=== PATIENT | female | born 1960 | race Caucasian/White ===

== ENCOUNTER 2023-08-09 14:08 | Emergency (ER) | payer OTHER, SELFPAY ==
[2023-08-09] VITALS (13 sets, daily range): BP systolic 167–192; BP diastolic 98–104; PULSE 71–97; RESP 17; TEMP 37; O2SAT 85–97; BMI 29.2
--- NOTE | 2023-08-09 14:36 | CRLHL7_ITS ---
For Patients: As a result of the Century Cures Act, medical imaging exams and procedure reports are released immediately into your electronic medical record. You may view this report before your referring provider. If you have questions, please contact your health care provider. INDICATION: Left-sided pain. TECHNIQUE: Noncontrast CT images acquired through the lumbar spine. COMPARISON: None. FINDINGS: Transitional lumbosacral anatomy. For purposes of this exam, the transitional segment is designated S1 and demonstrates lumbarization. Rudimentary S1-2 disc space. The lumbar lordosis is preserved. Palq-xe-vhuwqtma rightward lumbar curvature. Vertebral heights maintained. No acute fracture or spondylolisthesis. T12-L1 through L2-3: No spinal canal or neural foraminal narrowing. L3-4: Moderate disc height loss. Circumferential disc bulge. Mild facet arthropathy. Thickening ligamentum flavum. Jzgz-tp-mattqycf spinal canal narrowing. Mild left without right neural foraminal narrowing. L4-5: Moderately advanced disc height loss. Posterior disc bulge. Vwdk-lz-slfzkvvw facet arthropathy. Thickening ligamentum flavum. Tkhw-hk-qcsvmwif spinal canal narrowing. No neural foraminal narrowing. L5-S1: Advanced disc height loss. Posterior disc bulge with superimposed left central disc extrusion demonstrating cephalad predominant migration. Advanced right and moderate left facet arthropathy. Severe spinal canal and left greater than right lateral recess stenosis. Hats-ou-uwfxolrw left and mild right neural foraminal narrowing. S1-2: Transitional level. Endplate spondylitic ridging. No spinal canal narrowing. Low-grade neural foraminal narrowing. IMPRESSION: 1. Transitional lumbosacral anatomy. For purposes of this exam, the transitional segment is designated S1 and demonstrates lumbarization. Rudimentary S1-2 disc space. 2. At L5-S1, superiorly migrated left central disc extrusion contributes to severe stenosis of the spinal canal and left greater than right lateral recesses. Please note that all CT scans at this facility use dose modulation, iterative reconstruction, and/or weight-based dosing when appropriate to reduce radiation dose to as low as reasonably achievable. Dictated by Jesus Marquez MD @ 08/09/2023 4:11:20 PM (Electronically Signed)
--- NOTE | 2023-08-09 14:42 | ED_ITS ---
HPI - General Adult General Chief complaint: Back Injury/Pain <Dipesh Welch MD - Last Filed: 08/10/23 08:30> Stated complaint: Sciatic nerve pain, chest pain, high BP <Dipesh Welch MD - Last Filed: 08/10/23 08:30> Time Seen by Provider: 08/09/23 14:10 <Dipesh Welch MD - Last Filed: 08/10/23 08:30> History of Present Illness HPI narrative: Patient is a 63 white female who presents with low back pain that is been chronic since about February of this year she has had a history of a ?herniated disc? her lumbar spine in the remote past. She is not really sure how this was diagnosed but she has had back pain. She started having some some leg pain on t he left sciatic type pain or pain down her leg to her calf over the last week or so she was seen in the clinic and started on a Medrol Dosepak [place] and Flexeril. She has not taken any [place] since yesterday morning as she was trying to ?save it?. Patient has been told she needs see Dr. Salazar and consider further workup in physical therapy. She came to the ER as she is having some exacerbation of her chronic chest pain as well. 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 She is post to have a stress test upcoming. She has been on the Medrol now for several days. Still reports significant low back discomfort and is interested in some type of scanning to make sure she does not have worsening of her disc issue. She has had no bowel or bladder symptoms, fever, chills, perineal numbness. <Dipesh Welch MD - Last Filed: 08/10/23 08:30> Related Data Home medications: Home Medications Medication Instructions Recorded Confirmed atorvastatin 20 mg tablet 20 mg PO 08/12/22 08/12/22 Previous Rx's Medication Instructions Recorded hydrocodone 5 mg-acetaminophen 325 1 tab PO Q8H PRN pain #14 tabs 08/09/23 mg tablet <Dipesh Welch MD - Last Filed: 08/10/23 08:30> Allergies/adverse reactions: Allergies Allergy/AdvReac Type Severity Reaction Status Date / Time penicillin V Allergy Hives Verified 08/12/22 15:09 <Dipesh Welch MD - Last Filed: 08/10/23 08:30> Review of Systems Status of ROS: Reports: 6 or more systems reviewed and unremarkable except as noted in History and below <Dipesh Welch MD - Last Filed: 08/10/23 08:30> 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) ?Z96.641 - Presence of right artificial hip joint (ICD-10) <Dipesh Welch MD - Last Filed: 08/10/23 08:30> Family History: Family History Other Stroke <Dipesh Welch MD - Last Filed: 08/10/23 08:30> Social History: Social History Smoking Status: Never smoker <Dipesh Welch MD - Last Filed: 08/10/23 08:30> Exam Narrative: Exam Narrative: Objective: Patient's vital signs show elevated blood pressure She is afebrile No palpable low back tenderness she has multiple patches of tape on her back from the chiropractor She is able to sit up from in a flexed position from lying down on a cart Normal strength sensation in the lower extremities no drift in the lower extremities with elevation of her legs, she straight leg raise is negative bilaterally Sensation normal lower extremities Heart exam is rate and rhythm regular heart murmur <Dipesh Welch MD - Last Filed: 08/10/23 08:30> Const: Vital Signs, click to edit/add: Vital Signs - 24 hr 08/09/23 14:25 08/09/23 14:31 08/09/23 14:32 Temperature 98.6 F Pulse Rate 88 86 Pulse Rate [Pulse Oximeter] 97 Respiratory Rate 17 Blood Pressure 167/98 H Blood Pressure [Ri ght Upper Arm] 192/104 H Pulse Oximetry 85 L 96 96 08/09/23 14:40 08/09/23 14:50 08/09/23 15:00 Temperature Pulse Rate 74 83 73 Pulse Rate [Pulse Oximeter] Respiratory Rate Blood Pressure Blood Pressure [Ri ght Upper Arm] Pulse Oximetry 97 94 96 08/09/23 15:02 08/09/23 15:03 08/09/23 15:41 Temperature Pulse Rate 75 83 77 Pulse Rate [Pulse Oximeter] Respiratory Rate Blood Pressure 169/100 H Blood Pressure [Ri ght Upper Arm] Pulse Oximetry 96 94 94 08/09/23 15:50 08/09/23 16:00 08/09/23 16:10 Temperature Pulse Rate 82 75 76 Pulse Rate [Pulse Oximeter] Respiratory Rate Blood Pressure Blood Pressure [Ri ght Upper Arm] Pulse Oximetry 97 93 95 08/09/23 16:20 Temperature Pulse Rate 71 Pulse Rate [Pulse Oximeter] Respiratory Rate Blood Pressure Blood Pressure [Ri ght Upper Arm] Pulse Oximetry 95 <Dipesh Welch MD - Last Filed: 08/10/23 08:30> Vital Signs, click to edit/add: Vital Signs - 24 hr 08/09/23 14:25 08/09/23 14:31 08/09/23 14:32 Temperature 98.6 F Pulse Rate 88 86 Pulse Rate [Pulse Oximeter] 97 Respiratory Rate 17 Blood Pressure 167/98 H Blood Pressure [Ri ght Upper Arm] 192/104 H Pulse Oximetry 85 L 96 96 08/09/23 14:40 08/09/23 14:50 08/09/23 15:00 Temperature Pulse Rate 74 83 73 Pulse Rate [Pulse Oximeter] Respiratory Rate Blood Pressure Blood Pressure [Ri ght Upper Arm] Pulse Oximetry 97 94 96 08/09/23 15:02 08/09/23 15:03 08/09/23 15:41 Temperature Pulse Rate 75 83 77 Pulse Rate [Pulse Oximeter] Respiratory Rate Blood Pressure 169/100 H Blood Pressure [Ri ght Upper Arm] Pulse Oximetry 96 94 94 08/09/23 15:50 08/09/23 16:00 08/09/23 16:10 Temperature Pulse Rate 82 75 76 Pulse Rate [Pulse Oximeter] Respiratory Rate Blood Pressure Blood Pressure [Ri ght Upper Arm] Pulse Oximetry 97 93 95 08/09/23 16:20 Temperature Pulse Rate 71 Pulse Rate [Pulse Oximeter] Respiratory Rate Blood Pressure Blood Pressure [Ri ght Upper Arm] Pulse Oximetry 95 <Michael Pappas DO - Last Filed: 08/09/23 16:30> Course Vital Signs Vital signs: Initial Vital Signs Temperature 98.6 F 08/09/23 14:25 Temperature Source Temporal Artery Scan 08/09/23 14:25 Pulse Rate 97 08/09/23 14:25 Respiratory Rate 17 08/09/23 14:25 Blood Pressure 192/104 H 08/09/23 14:25 Blood Pressure Mean 133 H 08/09/23 14:25 Pulse Oximetry 85 L 08/09/23 14:25 Vital Signs Temperature 98.6 F 08/09/23 14:25 Pulse Rate 97 08/09/23 14:25 Respiratory Rate 17 08/09/23 14:25 Blood Pressure 192/104 H 08/09/23 14:25 Pulse Oximetry 85 L 08/09/23 14:25 Temperature 98.6 F 08/09/23 14:25 Pulse Rate 71 08/09/23 16:20 Respiratory Rate 17 08/09/23 14:25 Blood Pressure 169/100 H 08/09/23 15:02 Pulse Oximetry 95 08/09/23 16:20 <Dipesh Welch MD - Last Filed: 08/10/23 08:30> Initial Vital Signs Temperature 98.6 F 08/09/23 14:25 Temperature Source Temporal Artery Scan 08/09/23 14:25 Pulse Rate 97 08/09/23 14:25 Respiratory Rate 17 08/09/23 14:25 Blood Pressure 192/104 H 08/09/23 14:25 Blood Pressure Mean 133 H 08/09/23 14:25 Pulse Oximetry 85 L 08/09/23 14:25 Vital Signs Temperature 98.6 F 08/09/23 14:25 Pulse Rate 97 08/09/23 14:25 Respiratory Rate 17 08/09/23 14:25 Blood Pressure 192/104 H 08/09/23 14:25 Pulse Oximetry 85 L 08/09/23 14:25 Temperature 98.6 F 08/09/23 14:25 Pulse Rate 71 08/09/23 16:20 Respiratory Rate 17 08/09/23 14:25 Blood Pressure 169/100 H 08/09/23 15:02 Pulse Oximetry 95 08/09/23 16:20 <Michael Pappas DO - Last Filed: 08/09/23 16:30> Medications Administered Medications: Discontinued Medications Generic Name Dose Route Start Last Admin Trade Name Freq PRN Reason Stop Dose Admin Morphine Sulfate 7.5 mg 08/09/23 14:36 08/09/23 14:56 Morphine 10 Mg/Ml Inj IM 08/09/23 14:37 7.5 mg ONCE ONE Administration <Dipesh Welch MD - Last Filed: 08/10/23 08:30> Discontinued Medications Generic Name Dose Route Start Last Admin Trade Name Freq PRN Reason Stop Dose Admin Morphine Sulfate 7.5 mg 08/09/23 14:36 08/09/23 14:56 Morphine 10 Mg/Ml Inj IM 08/09/23 14:37 7.5 mg ONCE ONE Administration <Michael Pappas DO - Last Filed: 08/09/23 16:30> Medical Decision Making MDM Narrative Medical decision making narrative: Patient was signed out to me at the start of my shift by Dr. Welch pending CT of the lumbar spine read. Did returned showing this left sided herniated disc in her L5-L1 area. I spoke to her and she says that is consistent with previous scans. She is feeling well and can be discharged home. She is agreeable with this plan. Addendum 8:29 a.m. August 10: The patient under CT sent and had a left-sided L5-S1 disc protrusion but also pretty severe central stenosis. I called and left a message for her that she should consult with Dr. Salazar through her clinic and consider getting an MRI scan of her back. <Dipesh Welch MD - Last Filed: 08/10/23 08:30> Patient was signed out to me at the start of my shift by Dr. Welch pending CT of the lumbar spine read. Did returned showing this left sided herniated disc in her L5-L1 area. I spoke to her and she says that is consistent with previous scans. She is feeling well and can be discharged home. She is agreeable with this plan. <Michael Bob Mian, DO - Last Filed: 08/09/23 16:30> Lab Data Labs: Lab Results 08/09/23 08/09/23 Range/Units 14:37 15:01 WBC 12.07 H (4.50-11.00) K/uL RBC 4.33 (4.00-5.20) m/uL Hgb 12.7 (12.0-16.0) gm/dL Hct 38.0 (33.0-51.0) % MCV 88 (80-100) fL MCH 29 (26-34) pg MCHC 33 (32-36) gm/dL RDW Coeff of Ash 12.4 (11.5-15.5) % Plt Count 340 (140-440) K/uL Neut % (Auto) 76.9 H (42.0-72.0) % Lymph % (Auto) 15.2 L (20-44) % [place] % (Auto) 6.3 (0.0-11.0) % Eos % (Auto) 0.2 (0.0-7.0) % Baso % (Auto) 0.2 (0.0-3.0) % Neut # (Auto) 9.30 H (1.7-7.0) K/uL Lymph # (Auto) 1.80 (0.90-2.90) K/uL [place] # (Auto) 0.80 (0.00-0.90) K/UL Eos # (Auto) 0.00 (0.00-0.50) K/uL Baso # (Auto) 0.00 (0.00-0.30) K/uL Abs Immat Gran (auto) 0.10 (0.00-0.30) K/uL Imm/Tot Granulo (auto) 1.2 % Sodium 138 (135-149) mmol/L Potassium 4.0 (3.6-5.1) mmol/L Chloride 103 (96-114) mmol/L Carbon Dioxide 25 (20-32) mmol/L Anion Gap 10 (7-15) mEq/L BUN 23 (7-30) mg/dL Creatinine 0.8 (0.5-1.5) mg/dL Estimated Creat Clear 47.63 Estimated GFR 83 ml/min Glucose 154 H (60-115) mg/dL Calcium 9.2 (8.4-10.6) mg/dL POC Troponin I 0.00 L (0.01-0.04) ng/ml <Dipesh Welch MD - Last Filed: 08/10/23 08:30> Lab Results 08/09/23 08/09/23 Range/Units 14:37 15:01 WBC 12.07 H (4.50-11.00) K/uL RBC 4.33 (4.00-5.20) m/uL Hgb 12.7 (12.0-16.0) gm/dL Hct 38.0 (33.0-51.0) % MCV 88 (80-100) fL MCH 29 (26-34) pg MCHC 33 (32-36) gm/dL RDW Coeff of Ash 12.4 (11.5-15.5) % Plt Count 340 (140-440) K/uL Neut % (Auto) 76.9 H (42.0-72.0) % Lymph % (Auto) 15.2 L (20-44) % [place] % (Auto) 6.3 (0.0-11.0) % Eos % (Auto) 0.2 (0.0-7.0) % Baso % (Auto) 0.2 (0.0-3.0) % Neut # (Auto) 9.30 H (1.7-7.0) K/uL Lymph # (Auto) 1.80 (0.90-2.90) K/uL [place] # (Auto) 0.80 (0.00-0.90) K/UL Eos # (Auto) 0.00 (0.00-0.50) K/uL Baso # (Auto) 0.00 (0.00-0.30) K/uL Abs Immat Gran (auto) 0.10 (0.00-0.30) K/uL Imm/Tot Granulo (auto) 1.2 % Sodium 138 (135-149) mmol/L Potassium 4.0 (3.6-5.1) mmol/L Chloride 103 (96-114) mmol/L Carbon Dioxide 25 (20-32) mmol/L Anion Gap 10 (7-15) mEq/L BUN 23 (7-30) mg/dL Creatinine 0.8 (0.5-1.5) mg/dL Estimated Creat Clear 47.63 Estimated GFR 83 ml/min Glucose 154 H (60-115) mg/dL Calcium 9.2 (8.4-10.6) mg/dL POC Troponin I 0.00 L (0.01-0.04) ng/ml <Michael Pappas DO - Last Filed: 08/09/23 16:30> Imaging Data CT lumbar spine: Radiologist's impression: 1. Transitional lumbosacral anatomy. For purposes of this exam, the transitional segment is designated S1 and demonstrates lumbarization. Rudimentary S1-2 disc space. 2. At L5-S1, superiorly migrated left central disc extrusion contributes to severe stenosis of the spinal canal and left greater than right lateral recesses. Please note that all CT scans at this facility use dose modulation, iterative reconstruction, and/or weight-based dosing when appropriate to reduce radiation dose to as low as reasonably achievable. Dictated by Jesus Marquez MD @ 08/09/2023 4:11:20 PM <Michael Pappas DO - Last Filed: 08/09/23 16:30> Discharge Plan Discharge Clinical Impression: Radiculitis, Chronic chest pain, Hypertension <Dipesh Welch MD - Last Filed: 08/10/23 08:30> Patient Disposition: Home, Self-Care <Diepsh Welch MD - Last Filed: 08/10/23 08:30> Condition: Improved <Dipesh Welch MD - Last Filed: 08/10/23 08:30> Additional Instructions: Finished the Medrol Dosepak, [place] as needed for pain relief. Follow up with primary care doctor consider MRI scanning of her back for radicular symptoms do not improve, consider physical therapy and appointment Dr. yeung. Recheck her blood pressure regularly and talk to your primary care doctor about managing this more aggressively if needed. Controlling your back pain and helping that get better will likely lower your blood pressure as well. <Dipesh Welch MD - Last Filed: 08/10/23 08:30> Activity Level: Light activity <Dipesh Welch MD - Last Filed: 08/10/23 08:30> Light activity <Michael Pappas DO - Last Filed: 08/09/23 16:30> Discharge Diet: Regular <Dipesh Welch MD - Last Filed: 08/10/23 08:30> Regular <Michael Pappas DO - Last Filed: 08/09/23 16:30> Prescriptions: New hydrocodone-acetaminophen 5-325 mg tablet 1 tab PO Q8H PRN (Reason: pain) Qty: 14 0RF No Action atorvastatin 20 mg tablet 20 mg PO Patient Comments: TAKE 1 TABLET BY MOUTH ONE TIME DAILY <Dipesh Welch MD - Last Filed: 08/10/23 08:30> Follow Up/Referrals: Carol Clements, PAAngelC [Primary Care Provider] - <Dipesh Welch MD - Last Filed: 08/10/23 08:30> Stand Alone Forms: MyHealth Info Instructions <Dipesh Welch MD - Last Filed: 08/10/23 08:30>
[2023-08-09] MEDS: MORPHINE 10 MG/ML inj 7.5 MG IM (14:56)
[2023-08-09 15:18] LABS: Basophils Percent Auto 0.2 % (0.0-3.0); Eosinophils Percent Auto 0.2 % (0.0-7.0); Hemoglobin* 12.7 gm/dL (12.0-16.0); Immature Granulocytes Pct Auto 1.2 %; Lymphocytes Percent Auto 15.2 % (20-44); Mean Corpuscular HGB Conc 33 gm/dL (32-36); Mean Corpuscular Hemoglobin 29 pg (26-34); Mean Corpuscular Volume 88 fL (80-100); Monocytes Percent Auto 6.3 % (0.0-11.0); Neutrophils Percent Auto 76.9 % (42.0-72.0); Platelet Count* 340 K/uL (140-440); RDW Coefficient of Variation % 12.4 % (11.5-15.5); Red Blood Count 4.33 m/uL (4.00-5.20); White Blood Count* 12.07 K/uL (4.50-11.00)
[2023-08-09 15:21] LABS: Slide Review Reflex No
[2023-08-09 15:31] LABS: Chloride* 103 mmol/L (96-114); Sodium* 138 mmol/L (135-149)
[2023-08-09 15:34] LABS: Blood Urea Nitrogen* 23 mg/dL (7-30); Carbon Dioxide* 25 mmol/L (20-32); Creatinine* 0.8 mg/dL (0.5-1.5); Est. Creatinine Clearance* 47.63; Estimated Glomerular Filt Rate 83 ml/min
[2023-08-09 15:35] LABS: Anion Gap 10 mEq/L (7-15); Calcium* 9.2 mg/dL (8.4-10.6); Glucose* 154 mg/dL (60-115)
== END 2023-08-09 16:47 | disposition home or self-care (01) ==
PROVIDERS: Family Medicine; Emergency Provider Student in an Organized Health Care Education/Training Program; PCP Physician Assistant Medical
DX: R07.9 Chest pain, unspecified (principal); M54.16 Radiculopathy, lumbar region; I10 Essential (primary) hypertension
CPT/HCPCS: 36415; 72131; 80048; 84484; 85025; 93005; 96372; 99283; 99284; J2270

== ENCOUNTER 2023-09-25 13:28 | Outpatient (CLI) | payer BC, SELFPAY ==
--- OUTSIDE RECORDS SUMMARY | 2023-09-25 13:30 | XMS_ITS | Clinical Summary ---
Author Name Unknown Organization [place] Address [facility] [place] [address] Care Team Providers Care Academic Advisement Director Name Role Phone Toshiajeannine Carol Ann Primary Care Provider [phone] Allergies Active Allergy Reactions Criticality Noted Date Comments Penicillins Hives 04/15/2022 Medications No known medications Active Problems No known active problems Social History Tobacco Use Types Packs/Day Years Used Date Smoking Tobacco: Never Assessed Adolescent Education Answer Date Record ed Getting School Help Needed Not on file 06/21 Sex and Gender Information Value Date Recorded Sex Assigned at Not on file Gender Identity Not on file Sexual Orientation Not on file Last Filed Vital Signs Vital Sign Reading Time Taken Comments Blood Pressure 138/81 04/15/2022 4:15 PM CDT Pulse 95 04/15/2022 4:15 PM CDT Temperature 36.7 ??C (98.1 ??F) 04/15/2022 2:04 PM CD T Respiratory Rate 24 04/15/2022 4:15 PM CDT Oxygen Saturation 97% 04/15/2022 4:15 PM CDT Inhaled Oxygen Concentration - - Weight 70.3 kg (155 lb) 04/15/2022 2:04 PM CDT Height 160 cm (5' 3) 04/15/2022 2:04 PM CDT Body Mass Index 27.46 04/15/2022 2:04 PM CDT Plan of Treatment Health Maintenance Due Date Last Done Comments ADVANCE CARE PLANNING 1960 ANNUAL REVIEW OF HM ORDERS 1960 CT COLONOGRAPHY 1960 FIT 1960 FLEX SIG 1960 MAMMO SCREENING 1960 YEARLY PREVENTIVE VISIT 1960 sDNA (Cologuard) 1960 COLONOSCOPY 1970 COLORECTAL CANCER SCREENING 1970 HIV SCREENING 1975 HEPATITIS C SCREENING 1978 PAP 1981 LIPID 2005 ZOSTER IMMUNIZATION (1 of 2) 2010 RSV VACCINE ( & 60+ ) (1 - 1-dose 60+ series) 2020 COVID-19 Vaccine (3 - 2022-2 4 season) 2023 01/28/2021, 01/07/2021 INFLUENZA VACCINE (#1) 2023 6, 09/17/2012 PHQ-2 (once per calendar year) 2023 DTAP/TDAP/TD IMMUNIZATION (2 - Td or Tdap) 08/27/2026 08/27/2016 HPV IMMUNIZATION Aged Out No longer e ligible based on patient's age to complete this topic IPV IMMUNIZATION Aged Out No longer e ligible based on patient's age to complete this topic MENINGITIS IMMUNIZATION Aged Out No l onger eligible based on patient's age to complete this topic Pneumococcal Vaccine: Pediatrics (0 to 5 Years) and At-Risk Patients (6 to 64 Years) Aged Out No longer eligible b ased on patient's age to complete this topic RSV MONOCLONAL ANTIBODY Aged Out No l onger eligible based on patient's age to complete this topic Care Teams Academic Advisement Director Relationship Specialty Start Date End Date Carol Clements [address] [place] [address] PCP - General Physician [employer] 04/15/22
--- OUTSIDE RECORDS SUMMARY | 2023-09-25 13:30 | XMS_ITS | Referral Summary ---
Author Name Unknown Organization [place] Address [id number] [place] [address] Care Team Providers Care Communication Signals Intelligence Name Role Phone Jesjoseluis Carol Ann Primary Care Provider [phone] Allergies Active Allergy Reactions Criticality Noted Date [...] 04/15/2022 2:04 PM CDT Plan of Treatment Not on file Care Teams Communication Signals Intelligence Relationship Specialty Start Date End Date Carol Clements [address] [place] [address] PCP - General Physician [employer] 04/15/22
--- OUTSIDE RECORDS SUMMARY | 2023-09-25 13:31 | XMS_ITS | Continuity of Care Document ---
Author Name Unknown Address [address] [place] [address] Phone [phone] Organization [facility], [place] Address [address] [place] [address] Care Team Providers Care Beck Tender Name Role Phone [facility] Referring Provider ELLE CORREA Referring Provider [phone] [facility] Physical Therapist Assessment Encounter Date Assessment Date Assessment LastModified by Organization Details LastModified Time 07/21/2023 07/21/2023 Today I spent a considerable amount of time discussing the patients past medical and personal history, as well as performing a physical examination all of which is documented in it's entirety in the electronic health record. I reviewed the pathophysiology of the disorder, potential contributing and risk factors as well as treatment options to address their complaints. I discussed the pros and cons of advanced imaging. I recommended advanced imaging with CBCT. Today no imaging was obtained. From a treatment perspective I recommended a rehabilitative treatment approach. Treatment begins with home self management designed to rest the muscles of mastication and reduce inflammation in the temporomandibular joints. This includes heat and ice compresses, eating a soft food or pain-free diet, bilateral chewing identifying and decreasing daytime muscle tension and modification of their sleep position. Today I taught simple jaw exercises designed to improve the jaw mechanics and movement, improve range of mouth opening and improve TM joint fluid circulation to facilitate healing. This includes jaw stretch with relaxed breathing. This was both demonstrated and given in written format. Concurrently I taught proper posture. Beyond self management I believe that they would benefit from a mandibular intraoral appliance. Today we obtained impressions to begin the fabrication for a custom made oral appliance. Today a prescription for Voltaren gel 1% topical, was discussed with the patient. The risks and benefits associated with the prescribed medication was discussed with the patient today. Patient was asked to discontinue medication intake and return to clinic if significant side effects were noted from the medication. In addition I've recommended rehabilitation with physical therapy. The goal of treatment is to restore function and reduce pain. I believe that by following these treatment recommendations there is a good prognosis for reduction of symptoms. History was obtained from the patient. The patient has 4 diagnoses they would like to address. This case is moderate complexity because of multiple diagnoses with chronic symptoms. Risk of complications include progressive disease/symptoms. Today time spent may have included a review of past records, history taking, review of diagnoses, contributing factors, treatment plan, diagnostic testing, prognosis, expectations, risks and complications of treatment/no treatment, discussions with other providers and completing documentation was 60 minutes. Cost of care and insurance coverage was reviewed and discussed with the patient. Not available 07/21/2023 16:54:25 Plan of Treatment Reminders Order Date Submit Date Provider Last Modified By Organization Details Last Modified Time Details Appointments None recorded. Lab None recorded. Referral physical therapist referral - Please contact patient to schedule visit 2022 023 [facility] [place], [address], [place], [address], 16:58:01 Procedures None recorded. Surgeries None recorded. Imaging CT, temporal bone, w/o contrast 2022 023 [email or web address] o1 [place], [facility] [address] [facility], [address], [place], [address], 16:55:48 Medication Orders None recorded. Patient TargetsNo targets recorded. Patient Instructions Encounter Date Encounter Id Patient Instructions Last Modified By Organization Details Last Modified Time 07/21/2023 [id number] Self Care for TMD Not avai lable 07/21/2023 16:55:48 oral appliance preparation* Not available 07/21/2023 16:55:48 Three Jaw Exercises Not available 07/21/2023 16:55:48 Reason for Referral Physical Therapist Referral for Pain of left temporomandibular joint Left TMJ pain and intermittent locking with masticatory and cervical myofascial pain Please contact patient to schedule visit Referring Physician: Terese Pelaez, Pain Management, Encounter Date: 07/21/2023 Results Created Date Observation Date Name Description Value Unit Range Abnormal Flag LastModifiedBy Organization Detail LastModifiedTime 07/21/20 23 07/21/2023 oral appli ance prepa ratio n* Type of appliance mandib ular stabil izatio n applia nce Not Available [place] [address], [place], [address], 07/20/2023 16:28:33 07/21/20 CT, tempo ral bone, w/o contr ast No observ ation record ed. [place] [address], [place], [address], 07/21/2023 16:30:14 Result Notes None recorded. 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 Procedures Surgical History Date Name Laterality Status Provider Name and Address Organization Details Recorded Time 7 Joint Replacement completed Clair bowman [facility] 07/21/2023 14:29:57 3 Drilling Fluids Specialist Surgery completed Clair bowman [facility] 07/21/2023 14:29:57 4 Tubal Ligation completed Clair bowman [facility] 07/21/2023 14:29:57 Drilling Fluids Specialist Surgery completed Clair bowman [facility] 07/21/2023 14:29:57 Power Teeth Extraction completed Clair bowman [facility] 07/21/2023 14:29:57 Imaging Results Imaging Date Name Status LastModified by Organiz ation Details LastModified Time 07/21/2023 CT, temporal bone, w/o contrast completed luis [email or web address], [place], [address], 07/21/2023 16:30:14 Procedure Notes None recorded. Medical Equipment None Reported. Allergies Allergen ID Allergen Name Allergen Category Reaction Reaction Severity Criticality Documentation Date Start Date Code Code System Note Provider Name and Address Organization Details Recorded Time 29954 Penicilli n Not available hives severe Not available 07/21/20231971 71159 RxNorm Clair bowman [facility] 14:29:31 Medications Name Sig Start Date Stop Date Status Note LastModified by Organization Details LastModified Time losartan 50 mg tablet TAKE 1 TABLET BY MOUTH ONE TIME DAILY* active Not Available Not Available No t Available atorvastati n 40 mg tablet TAKE ONE TABLET BY MOUTH EVERY NIGHT AT BEDTIME* active Not Available Not Available No t Available azithromyci n 250 mg tablet Take 2 tablets by mouth on day 1, then 1 tablet daily for days 2-5.* 07/21 completed Not Available Not Available Not Available lisinopril 20 mg tablet TAKE 1 TABLET BY MOUTH ONE TIME DAILY active Not Available Not Available No t Available prednisone 20 mg tablet Take 1 Tablet (20 mg) by mouth two times daily with meals for 5 days.* 07/21 completed Not Available Not Available Not Available doxycycline monohydrate 100 mg capsule Take 1 Capsule (100 mg) by mouth two times daily for 10 days. 07/21 completed Not Available Not Available Not Available losartan 25 mg tablet TAKE 1 TABLET BY MOUTH ONE TIME DAILY active Not Available Not Available No t Available methylpredn isolone 4 mg tablets in a dose pack TAKE PER PACKAGE INSTRUCTI ONS* 07/21 completed Not Available Not Available Not Available fluticasone propionate 50 mcg/actuati on nasal spray,suspe nsion Inhale 2 Sprays to both nostrils once daily. active Not Available Not Available No t Available doxycycline hyclate 100 mg tablet TAKE ONE TABLET BY MOUTH TWICE DAILY BEFORE MEALS for 7 days* 07/21 completed Not Available Not Available Not Available levalbutero l HFA 45 mcg/actuati on aerosol inhaler Inhale 1-2 Puffs by mouth every 4 hours if needed for Shortness Of Breath or Wheezing. * active Not Available Not Available No t Available Paxlovid 300 mg (150 mg x 2)-100 mg tablets in a dose pack take 2 pink tablets (nirmatre lvir 150mg tablet) and 1 white tablet (ritonavi r 100mg tablet) by mouth twice daily for 5 days* 07/21 completed Not Available Not Available Not Available Vitals Date Recorded Heart rate Systolic blood pressure Diastolic blood pressure Provider Name and Address Organization Details Last Updated DateTime 07/21/2023 80 /min 153 mm[Hg] 94 mm[Hg] SHANTEL Schmidt - [facility] 07/21/2023 14:37:05 Social History Question Answer Notes LastModified by Organizat ion Details LastModified Time Tobacco Smoking Status Never Smoker SHANTEL Angeles - [facility] 07/21/2023 14:29:54 What Is Your Level Of Alcohol Consumption? Occasional [email or web address] Information not available 07/21/2023 What Is Your Level Of Caffeine Consumption? Occasional [email or web address] Information not available 07/21/2023 Are You Currently Employed? Yes [email or web address] Information not available 07/21/2023 What Type Of Diet Are You Following? REGULAR [email or web address] Information not available 07/21/2023 Do You Reside In Or Have You Traveled To An Area Where Ebola Virus Transmission Is Active? No [email or web address] Information not available 07/21/2023 What Is The Highest Grade Or Level Of School You Have Completed Or The Highest Degree You Have Received? 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 (0=no Pain, 10=pain As Bad As You Can Imagine) 4 [email or web address] Information not available 07/21/2023 What Number Best Describes How, During The Past Week, Pain Has Interfered With Your Enjoyment Of Life? (0=does Not Interfere, 10= Completely Interferes) 2 Information not available 07/21/2023 What Number Best Describes How, During The Past Week, Pain Has Interfered With Your General Activity? (0=does Not Interfere, 10=completely Interferes) 2 Information not available 07/21/2023 How Did Primary Problem Begin? Don't Remember, Got Much Worse After Dentist Visit [email or web address] Information not available 07/21/2023 How Many Children Do You Have? 4 [email or web address] Information not available 07/21/2023 What Is Your Relationship Status? [email or web address] Information not available 07/21/2023 Do You Feel Stressed (tense, Restless, Nervous, Or Anxious, Or Unable To Sleep At Night)? [id number] [email or web address] Information not available 07/21/2023 Do You Use Any Illicit Or Recreational Drugs? No [email or web address] Information not available 07/21/2023 How Many Years Have You Smoked Tobacco? 0 [email or web address] Information not available 07/21/2023 Sex: Female Functional Status Question Answer Note LastModified by Organizat ion Details LastModified Time What is your exercise level? Occasional [email or web address] Information not available 07/21/2023 Mental Status None recorded. Family History Relationship Description Onset Age of this Age Resolved Age Notes Father Arthritis Father Rheumatoid arthritis Medical History Condition Response Muscle, Joint, or Bone Problems Y Arthritis Y Hypertension Y High Cholesterol Y Gynecological HistoryNo gynecological history recorded. 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 Onset: started 2 year(s) ago Location: left; masseteric; preauricular Quality: dull; aching; sore Severity: mild; pain level 4/10 Duration constant; worsening Symptom triggers: clenching; chews hard/crunchy/chewy foods; dental work; known systemic arthritis Aggravating Factors: yawning; wide mouth opening; dental work Alleviating Factors: NSAIDs; acetaminophen; chiropractor Associated Symptoms: jaw clicking left Prior opinion dentist Symptoms status worse Patient presents today for evaluation of a possible temporomandibular disorder. These symptoms are chronic and began with no clear triggering events. Previous consultation include evaluation with his/her dentist. Symptoms are left sided only and aggravated by dental work . The patient is aware of teeth clenching and grinding. Eda presents for evaluation of left sided jaw pain. Symptoms started about two years ago after a dental appointment. It decreased after the crown was adjusted, but jaw pain persistent since. Pain is localized to the left preauricular area. The pain is constant and aggravated by chewing and opening wide. She recognizes daytime clenching and sleep bruxism. She recognizes left TMJ clicking and crepitus. She has noticed some occasional left TMJ catching that has been more frequent over time. She denies TMJ locking and dental pain. She does not have a recent panoramic imaging. The pain is a dull/ache, constant, mild, chewing increases the pain, so does wide opening. She noticed that tylenol is more helpful than Aleve. She denies ear pain and headaches. As a secondary concern, she also reports neck pain due to a herniated disk - stopped seeing chiropractor about nine months ago, since it was not helping as much. She also reported lower back pain due to herniated disk. She had hip replacement surgery about 6 years ago due to arthritis (she reported negative blood work at that time). Eda is unsure which heart medications she is taking at the moment. She recently had a prednisone course for sinus issues, but is unsure if it helped with her jaw pain. 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 TERESE PELAEZ DDS,MS [address], [place], [address], [facility] 07/21/2023 16:55:52 OBGyn Episode No OBEpisode recorded.
--- OUTSIDE RECORDS SUMMARY | 2023-09-25 13:31 | XMS_ITS | Data Portability ---
Author Name Unknown Address [address] [place] [address] Phone [phone] Organization [place] [facility], [place] Address [address] [place] [address] Care Team Providers Care Panelboard Tank Pumper Name Role Phone [facility] Referring Provider [phone] ELLE CORREA Referring Provider [phone] [facility] Physical Therapist Assessment Encounter Date Assessment Date [...] contact patient to schedule visit 2022 023 [facility] [place], [address], [place], [address], 16:58:01 Procedures None recorded. Surgeries None recorded. Imaging CT, temporal bone, w/o contrast 2022 023 [email or web address] o1 [place], [facility] [address] [facility], [place], [address], 16:55:48 Medication Orders None recorded. Patient TargetsNo targets recorded. Patient Instructions Encounter Date Encounter Id Patient Instructions Last Modified By Organization Details Last Modified Time 07/21/2023 [id number] Self Care for TMD Not avai lable [...] stabil izatio n applia nce Not Available [place] [address], [place], [address], 07/20/2023 16:28:33 07/21/20 CT, tempo ral bone, w/o contr ast No observ ation record ed. [place] [address], [place], [address], 07/21/2023 16:30:14 Result Notes None recorded. 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 Procedures Surgical History Date Name Laterality Status Provider Name and Address Organization Details Recorded Time 7 Joint Replacement completed Clair bowman [facility] 07/21/2023 14:29:57 3 Grades 1 Through 5 Teacher Surgery completed Clair bowman [facility] 07/21/2023 14:29:57 4 Tubal Ligation completed Clair bowman [facility] 07/21/2023 14:29:57 Grades 1 Through 5 Teacher Surgery completed Clair bowman [facility] 07/21/2023 14:29:57 Harvey Teeth Extraction completed Clair bowman [facility] 07/21/2023 14:29:57 Imaging Results Imaging Date Name Status LastModified by Organiz ation Details LastModified Time 07/21/2023 CT, temporal bone, w/o contrast completed luis [email or web address], [place], [address], 07/21/2023 16:30:14 Procedure Notes None recorded. Medical Equipment None Reported. Allergies Allergen ID Allergen Name Allergen Category Reaction Reaction Severity Criticality Documentation Date Start Date Code Code System Note Provider Name and Address Organization Details Recorded Time 13959 Penicilli n Not available hives severe Not available 07/21/20231971 76023 RxNorm Clair bowman [facility] 14:29:31 Medications [...] 153 mm[Hg] 94 mm[Hg] SHANTEL Schmidt - [facility] 07/21/2023 14:37:05 Social History Question Answer Notes LastModified by Organizat ion Details LastModified Time Tobacco Smoking Status Never Smoker SHANTEL [place] - [facility] 07/21/2023 14:29:54 What Is Your Level Of Alcohol Consumption? Occasional [email or web address] Information not available 07/21/2023 What Is Your Level Of Caffeine Consumption? Occasional [email or web address] Information not available 07/21/2023 Are You Currently Employed? Yes [email or web address] Information not available 07/21/2023 What Type Of Diet Are You Following? REGULAR [email or web address] Information not available 07/21/2023 Do You Reside In Or Have You Traveled To An Area Where Ebola Virus Transmission Is Active? No Information not available 07/21/2023 What Is The Highest Grade Or Level Of School You Have Completed Or The Highest Degree You Have Received? 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 (0=no Pain, 10=pain As Bad As You Can Imagine) 4 [email or web address] Information not available 07/21/2023 What Number Best Describes How, During The Past Week, Pain Has Interfered With Your Enjoyment Of Life? (0=does Not Interfere, 10= Completely Interferes) 2 [email or web address] Information not available 07/21/2023 What Number Best Describes How, During The Past Week, Pain Has Interfered With Your General Activity? (0=does Not Interfere, 10=completely Interferes) 2 [email or web address] Information not available 07/21/2023 How Did Primary Problem Begin? Don't Remember, Got Much Worse After Dentist Visit [email or web address] Information not available 07/21/2023 How Many Children Do You Have? 4 Information not available 07/21/2023 What Is Your Relationship Status? [email or web address] Information not available 07/21/2023 Do You Feel Stressed (tense, Restless, Nervous, Or Anxious, Or Unable To Sleep At Night)? [id number] Information not available 07/21/2023 Do You Use Any Illicit Or Recreational Drugs? No [email or web address] Information not available 07/21/2023 How Many Years Have You Smoked Tobacco? 0 [email or web address] Information not available 07/21/2023 Sex: Female Functional Status Question Answer Note LastModified by Organizat ion Details LastModified Time What is your exercise level? 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 Sleep related bruxism Health Concerns Section Related Observation LastModified by Organization Detai ls LastModified Time None Recorded Concern Status LastModified by Organization Details LastModified Time None Recorded Advance Directives Directive None Recorded Payers Encounter Date Sequence Insurance Name Policy Number Policy Harden Covered Member ID Harden Member ID Guarantor Name 07/21/2023 1 [facility] [id number] Eda Fernández [id number] Eda Fernández Notes Date Note Type Note [...] 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 TERESE PELAEZ DDS,MS [address], [place], [address], [facility] 07/21/2023 16:55:52 OBGyn Episode No OBEpisode recorded.
--- OUTSIDE RECORDS SUMMARY | 2023-09-25 13:31 | XMS_ITS | Clinical Summary ---
Author Name Unknown Organization [employer] [facility] [employer] Address [place], [place] [address] Care Team Providers Care Glove Brusher Name Role Phone Carol Clements Primary Care Provider Allergies Active Allergy Reactions Criticality Noted Date Comments Penicillins Hives High 03/07/1972 Medications Medication Sig Dispensed Refills Start Date End Date Status nitroglycerin (NITROSTAT) 0.4 mg sublingual tabletIndications: Chest pain in adult Place 1 tablet under the tongue every 5 minutes if needed for Chest Pain. 30 tablet 0 9 Active fluticasone (50 mcg per actuation) nasal solution (FLONASE)Indicatio ns:Acute non-recurrent pansinusitis Inhale 2 Sprays to both nostrils once daily. 16 g 3 2 Active atorvastatin (LIPITOR) 40 mg tabletIndications: Hypercholesterolem ia Take 1 Tablet (40 mg) by mouth at bedtime. 90 Tablet 3 3 Active levalbuterol (XOPENEX HFA) 45 mcg/actuation inhalerIndications :Acute bronchitis, unspecified organism Inhale 1-2 Puffs by mouth every 4 hours if needed for Shortness Of Breath or Wheezing. 15 g 0 3 Active azithromycin (ZITHROMAX) 250 mg tabletIndications: Acute bronchitis, unspecified organism Take 500 mg (2 tabs) by mouth on day 1, then 250 mg (1 tab) daily for days 2-5. 6 Tablet 0 3 Active losartan (COZAAR) 100 mg tabletIndications: HTN (hypertension) Take 1 Tablet (100 mg) by mouth once daily. 90 Tablet 0 3 Active tiZANidine (ZANAFLEX) 4 mg tabletIndications: Acute midline low back pain with left-sided sciatica Take 1 Tablet (4 mg) by mouth at bedtime if needed for Muscle Spasm. 10 Tablet 0 3 Active oxyCODONE-acetamin ophen (Percocet) 5-325 mg per tabletIndications: Lumbar radiculopathy Take 1 Tablet by mouth every 6 hours if needed for Pain. Max acetaminophen dose: 4000mg in 24 hrs. 24 Tablet 0 4 Active gabapentin (NEURONTIN) 300 mg capsuleIndications :Lumbar radiculopathy Take 1 Capsule (300 mg) by mouth at bedtime. 30 Capsule 3 4 Active LORazepam (ATIVAN) 1 mg tabletIndications: Lumbar radiculopathy Take 1 Tablet (1 mg) by mouth one time for 1 dose. 1 Tablet 0 4 Active methylPREDNISolone (MEDROL DOSEPAK) 4 mg tabletIndications: Acute midline low back pain with left-sided sciatica Take by mouth as instructed per packaging: take all tablets together with breakfast. 21 Tablet 0 3 09/17/19 24 Discontinue d(*Med complete/Re gimen complete/Le liz of care change) HYDROcodone-acetam inophen (5-325 mg/tablet)Indicati ons:Acute midline low back pain with left-sided sciatica Take 1 Tablet by mouth 3 times daily if needed for Pain. Max acetaminophen dose: 4000 mg in 24 hrs. 36 Tablet 0 3 08/27/20 23 Discontinue d(Reorder (E-cancel not sent)) HYDROcodone-acetam inophen (5-325 mg/tablet)Indicati ons:Acute midline low back pain with left-sided sciatica Take 1 Tablet by mouth 3 times daily if needed for Pain. Max acetaminophen dose: 4000 mg in 24 hrs. 36 Tablet 0 3 09/14/19 24 Discontinue d(Reorder (E-cancel not sent)) predniSONE (DELTASONE) 20 mg tabletIndications: Lumbar radiculopathy,Lumb ar disc herniation Take 1 Tablet (20 mg) by mouth three times daily with meals for 4 days, THEN 1 Tablet (20 mg) two times daily with meals for 4 days, THEN 1 Tablet (20 mg) once daily with a meal for 4 days. 24 Tablet 0 3 09/08/19 24 HYDROcodone-acetam inophen (5-325 mg/tablet)Indicati ons:Acute midline low back pain with left-sided sciatica Take 1 Tablet by mouth 3 times daily if needed for Pain. Max acetaminophen dose: 4000 mg in 24 hrs. 36 Tablet 0 4 09/17/19 24 Discontinue d(*Med complete/Re gimen complete/Le liz of care change) Active Problems Problem Noted Date Diagnosed Date H/O total hysterectomy 01/01/2022 DDD (degenerative disc disease), cervical 2014 Cervical myofascial pain syndrome 02/14/2015 Hypercholesterolemia 01/29/2011 Displacement of lumbar inter vertebral disc without myelopathy 10/23/2008 Resolved Problems Problem Noted Date Diagnosed Date Resolved Date Hip impingement syndrome 02/14/201506/2015 Mild osteoarthritis of right hip 02/14/2015 09/11/2016 Encounters Date Type Department Care Team Description 09/18/2023 Telephone [facility] [address] [facility] [place] [address] Chris Eason MD Form (Principal form ) 09/17/2023 11:20 AM ACCESS LIAISON Office Visit [facility] [address] [facility] [place] [address] Chris Eason MD Musculoskeletal Problem (Follow up back pain) 09/17/2023 Travel 08/27/2023 1:15 PM ACCESS LIAISON Ancillary Procedure [facility] [address] [facility] [place] [address] 08/27/2023 Telephone [facility] [address] [facility] [place] [address] Chris Eason MD Results (MRI) 08/27/2023 Travel 08/21/2023 Telephone [facility] [address] [facility] [place] [address] Chris Eason MD Prior Authorization (HYDROcodone-acetaminop hen (5-325 mg/tablet) APPROVED (07/22/23-08/20/24)) 08/20/2023 11:00 AM ACCESS LIAISON Office Visit [facility] [address] [facility] [place] [address] Chris Eason MD Musculoskeletal Problem (Consult back pain has been seen in the past per EMILY Reid) 08/20/2023 Refill [facility] [address] [place] [address] Chris Eason MD Refill Request (Hydrocodone 5mg acetaminophen 325mg tablet ) 08/20/2023 Travel 08/09/2023 Orders Only [facility] Scanner 1 scan: (1-Ord) [place] LUMBAR SPINE W/O, 08/09/2023 08/09/2023 Orders Only [facility] Scanner 1 scan: (1-Ord) [place], LUMBAR SPINE, 08/09/2023 08/06/2023 8:35 AM ACCESS LIAISON Office Visit [facility] [address] [place] [address] Angelina Truong PA Back Pain (Patient complains of sciatic nerve on left side, got really bad this morning. Pain was in calf but now the whole leg/lower back./Patient had chiropractor visit yesterday./Tylenol for pain.) 08/06/2023 Travel 06/30/2023 8:55 AM CDT Ancillary Procedure [facility] [address] [place] [address] 06/30/2023 8:30 AM CDT [place] [facility] [address] [place] [address] Patricia Diaz PA URI (last day of abx , cold feels like its moved into her chest. Still having sinus fullness still present.) 06/30/2023 Travel 06/29/2023 Travel from Last 3 Months Immunizations Name Administration Dates Next Due COVID-19 vaccine (Aptana 30mcg/0.3mL) P F, V 01/28/2021,01/07/2021 Influenza, IIV3 (Age >=3 years) 09/17/2012 Influenza, IIV4 08/27/2016 Tdap 08/27/2016 Family History Medical History Relation Name Comments Arthritis Father Other Mother colon polyps Cancer-breast No Family History Cancer-ovarian No Family History Relation Name Status Comments Father Mother Social History Tobacco Use Types Packs/Day Years Used Date Smoking Tobacco: Never Smokeless Tobacco: Never Tobacco Cessation:Counseling Given: Yes Alcohol Use Standard Drinks/Week Comments Yes 0 (1 standard drink = 0.6 oz pur e alcohol) occ Social Connections Answer Date Recorded Frequency of Communication with Friends and Fami ly 0 04/22/2023 Financial Resource Strain Answer Date R ecorded Difficulty of Paying Living Expenses 3 04/22/2023 Difficulty of Paying Living Expenses Not on file 04/22/2023 Food Insecurity Answer Date Recorded Worried About Running Out of Food in the Last Ye ar 1 04/22/2023 Transportation Needs Answer Date Record ed Lack of Transportation (Medical) 1 04/22/2023 Housing Stability Answer Date Recorded Unable to Pay for Housing in the Last Year 1 04/22/2023 Sex and Gender Information Value Date Recorded Sex Assigned at Not on file Gender Identity Not on file Sexual Orientation Not on file Obstetrics History Last Filed Vital Signs Vital Sign Reading Time Taken Comments Blood Pressure 138/84 09/17/2023 11:25 AM ACCESS LIAISON Pulse 89 09/17/2023 11:25 AM ACCESS LIAISON Temperature 36.7 ??C (98.1 ??F) 09/17/2023 11:[address] Respiratory Rate - - Oxygen Saturation 96% 09/17/2023 11:25 AM ACCESS LIAISON Inhaled Oxygen Concentration - - Weight 74.8 kg (165 lb) 09/17/2023 11:25 AM ACCESS LIAISON boots on Height 160 cm (5' 3) 06/30/2023 8:36 AM CDT Body Mass Index 29.23 06/30/2023 8:36 AM CDT Plan of Treatment Upcoming Encounters Date Type Department Care Team (Late st Contact Info) Description 09/25/2023 2:00 PM ACCESS LIAISON Office Visit [facility] [address] [place] [address] Chris Eason MD [address] [place] [address] Arrived 10/23/2023 11:00 AM ACCESS LIAISON Office Visit [facility] [address] [place] [address] Chris Eason MD [address] [place] [address] Health Maintenance Due Date Last Done Comments HIV for age 15-65 1975 Hepatitis C screening for age 18-79 1978 Zoster (shingles) series for age 50+ (1 of 2) 2010 Colonoscopy through age 75 01/10/2016 01/09/2006 Depression screening for age 12+ 07/15/2018 07/15/2017, 10/31/2015 Mammogram for age 45-75 05/20/2022 05/20/20 21, 10/04/2015, 12/16/2007 COVID-19 vaccine series ( season) 2023 01/28/2021, 01/07/2021 Influenza for age 50-64 05/08/2023 08/27/20 16, 09/17/2012, 09/16/2011 (Declined) BMI (ht and wt on same day) for age 18+ 06/30/2024 06/30/2023, 09/20/2021, 05/20/2021, Additional history exists Tetanus booster 08/27/2026 08/27/2016, 04/07 (Declined) Lipids for age 45-75 04/22/2028 04/22/2023, 11/26/2022, 09/20/2021, Additional history exists Tdap Completed 08/27/2016 Pneumococcal series for age 6-64 Aged Out No longer eligible based on patient's age to complete this topic Procedures Procedure Name Priority Date/Time Associated Diagnosis Comments AMB EPIDURAL STEROID INJECTION Routine 09/25/2023 8:26 AM ACCESS LIAISON Lumbar radiculopathy Lumbar disc herniation Spinal stenosis of lumbar region with neurogenic claudication MR SPINE LUMBAR WO DARRELL 08/27/2023 1: 54 PM ACCESS LIAISON Lumbar disc herniation Lumbar radiculopathy Spinal stenosis of lumbar region with neurogenic claudication SCAN-CT INTERPRETATION 3 12:00 AM ACCESS LIAISON SCAN-CT INTERPRETATION 3 12:00 AM ACCESS LIAISON XR CHEST 2 VIEWS PA AND LATERAL STAT 06/30/2023 9:02 AM CDT History of COVID-19 Cough, unspecified type Wheezing from Last 3 Months Results * MR SPINE LUMBAR WO (08/27/2023 1:54 PM ACCESS LIAISON) Anatomical Region Laterality Modality Spine, LUMBAR SPINE Magnetic Res onance 08/27/2023 3:59 PM ACCESS LIAISON Narrative 08/27/2023 3:59 PM ACCESS LIAISON For Patients: ??As a result of the Cures Act, medical imaging exams and procedure reports are released immediately into your electronic medical record. ??You may view this report before your referring provider. ??If you have questions, please contact your health care provider. Indication: PT WITH LT LEG PAIN, NUMBNESS AND TINGLING IN, PROBLEMS FOR ABOUT 3 WEEKS, NO PRIOR INJURY, SURGERY OR CA Technique: Noncontrast sagittal and axial T1, T2, and sagittal STIR sequences are provided. Comparison: MRI 04/07/2019 Findings: Transitional lumbosacral anatomy. Lumbarization of the S1 vertebral body with rudimentary S1 disc. Plain film correlation recommended prior to any surgical intervention. The conus medullaris is normal in signal and location. No fracture. No prevertebral or paraspinal edema. No aggressive osseous lesion. T12-L1: Normal disc and facet joints. No significant spinal canal stenosis or neural foramen narrowing. L1-2: Normal disc and facet joints. No significant spinal canal stenosis or neural foramen narrowing. L2-3: No significant spinal canal stenosis or neural foramen narrowing. L3-4: Circumferential disc bulge and facet arthrosis. Mild left subarticular recess narrowing and central canal stenosis. Mild left neural foramina narrowing. L4-5: Posterior disc bulge. Mild subarticular recess stenosis bilaterally. Mild facet arthrosis. Mild neural foramen narrowing bilaterally. L5-S1: Moderate interspace narrowing. New small Schmorl`s node in the S1 superior endplate. Enlargement of posterior disc bulge and new superimposed central disc extrusion on the left side resulting in severe spinal canal stenosis and impingement of bilateral traversing nerve roots. The herniation measures 8 mm AP x 1 cm craniocaudal x 1.7 cm TR. Advanced right and moderate left facet arthrosis. Mild neural foramen narrowing bilaterally. S1-S2: Moderate facet arthrosis. Mild left and no right neural foramen narrowing. Impression: 1. Lumbarization of the S1 vertebral body with rudimentary S1 disc. Plain film correlation recommended prior to any surgical intervention. No acute osseous or ligamentous abnormality. 2. At L5-S1, new large central disc extrusion results in severe spinal canal stenosis and impingement of traversing nerve roots. Mild neural foramen narrowing bilaterally. 3. At L4-5, stable mild subarticular recess stenosis and neural foramen narrowing bilaterally. Dictated by Bairon Hackett MD @ 08/27/2023 3:59:00 PM (Electronically Signed) Procedure Note Bairon Hackett MD - 08/27/2023 For Patients: As a result of the Cures Act, medical imagingexams and procedure reports are released immediately into your electronicmedical record. You may view this report before your referring provider.If you have questions, please contact your health care provider. Indication: PT WITH LT LEG PAIN, NUMBNESS AND TINGLING IN, PROBLEMS FOR ABOUT 3 WEEKS,NO PRIOR INJURY, SURGERY OR CA Technique: Noncontrast sagittal and axial T1, T2, and sagittal STIR sequences areprovided. Comparison: MRI 04/07/2019 Findings: Transitional lumbosacral anatomy. Lumbarization of the S1 vertebral bodywith rudimentary S1 disc. Plain film correlation recommended prior to anysurgical intervention. The conus medullaris is normal in signal andlocation. No fracture. No prevertebral or paraspinal edema. No aggressiveosseous lesion. T12-L1: Normal disc and facet joints. No significant spinal canal stenosisor neural foramen narrowing. L1-2: Normal disc and facet joints. No significant spinal canal stenosisor neural foramen narrowing. L2-3: No significant spinal canal stenosis or neural foramen narrowing. L3-4: Circumferential disc bulge and facet arthrosis. Mild leftsubarticular recess narrowing and central canal stenosis. Mild left neuralforamina narrowing. L4-5: Posterior disc bulge. Mild subarticular recess stenosis bilaterally.Mild facet arthrosis. Mild neural foramen narrowing bilaterally. L5-S1: Moderate interspace narrowing. New small Schmorl`s node in the R6ziulculo endplate. Enlargement of posterior disc bulge and newsuperimposed central disc extrusion on the left side resulting in severespinal canal stenosis and impingement of bilateral traversing nerve roots.The herniation measures 8 mm AP x 1 cm craniocaudal x 1.7 cm TR. Advancedright and moderate left facet arthrosis. Mild neural foramen narrowingbilaterally. S1-S2: Moderate facet arthrosis. Mild left and no right neural foramennarrowing. Impression: 1. Lumbarization of the S1 vertebral body with rudimentary S1 disc. Plainfilm correlation recommended prior to any surgical intervention. No acuteosseous or ligamentous abnormality. 2. At L5-S1, new large central disc extrusion results in severe spinalcanal stenosis and impingement of traversing nerve roots. Mild neuralforamen narrowing bilaterally. 3. At L4-5, stable mild subarticular recess stenosis and neural foramennarrowing bilaterally. Dictated by Bairon Hackett MD @ 08/27/2023 3:59:00 PM (Electronically Signed) Chris Eason MD MR * SCAN-CT INTERPRETATION (08/09/2023 12:00 AM ACCESS LIAISON) Only the most recent of2 resultswithin the time period is included. Anatomical Region Laterality Modality Other Scanner OTHER * XR CHEST 2 VIEWS PA AND LATERAL (06/30/2023 9:02 AM CDT) Anatomical Region Laterality Modality CHEST, THORAX, Lung, HEART Compu sanya Radiography 06/30/2023 9:07 AM CDT Impressions 06/30/2023 9:07 AM CDT No acute findings and no significant changes from the prior exam. Dictated by Anthony Sánchez MD @ Jun 30 2023 ??9:07AM (Electronically Signed) ?? Narrative 06/30/2023 9:07 AM CDT For Patients: ??As a result of the Century Cures Act, medical imaging exams and procedure reports are released immediately into your electronic medical record. ??You may view this report before your referring provider. ??If you have questions, please contact your health care provider. INDICATION: Cough and wheezing. TECHNIQUE: Chest 2 views. COMPARISON: 01/19/2018. FINDINGS: Heart and mediastinum: ??Heart size and vasculature are normal in caliber and appearance. ?? Lungs and pleural spaces: ??Lungs are clear. ??No sign of infiltrate or mass. ??No sign of pleural effusion. ??No pneumothorax. ?? Bones and soft tissues: ??No significant findings. Procedure Note Anthony Sánchez MD - 06/30/2023 For Patients: As a result of the Cures Act, medical imagingexams and procedure reports are released immediately into your electronicmedical record. You may view this report before your referring provider.If you have questions, please contact your health care provider. INDICATION: Cough and wheezing. TECHNIQUE: Chest 2 views. COMPARISON: 01/19/2018. FINDINGS: Heart and mediastinum: Heart size and vasculature are normal in caliberand appearance. Lungs and pleural spaces: Lungs are clear. No sign of infiltrate ormass. No sign of pleural effusion. No pneumothorax. Bones and soft tissues: No significant findings. IMPRESSION: No acute findings and no significant changes from the prior exam. Dictated by Anthony Sánchez MD @ Jun 30 2023 9:07AM (Electronically Signed) Patricia Victor from Last 3 Months Care Teams Glove Brusher Relationship Specialty Start Date End Date Carol Clements PA [address] [place] [address] PCP - General Physician Home Health Physical Therapist 02/09/19
== END 2023-09-25 13:29 | disposition home or self-care (01) ==
LOC: INJ CL 13:29
PROVIDERS: PCP Physician Assistant Medical; Visit Provider Family Medicine
DX: M51.26 Other intervertebral disc displacement, lumbar region (principal); M54.16 Radiculopathy, lumbar region
CPT/HCPCS: 64483; J1100; Q9966

== ENCOUNTER 2024-06-08 07:47 | Outpatient (CLI) | payer BC, SELFPAY ==
--- OUTSIDE RECORDS SUMMARY | 2024-06-08 07:49 | XMS_ITS | Continuity of Care Document ---
Author Organization [facility] Address [address] [place] [address] Phone Care Team Providers Care Bulk Sausage Casing Tier Off Name Role Phone Eckroth Michi KNOTT Unavailable Unavailable Allergies, Adverse Reactions, Alerts Substance Reaction Status Criticality Penicillins Rash Active No Information Medications Medication Instructions Dosage Effective Dates (start - stop) Status Comments methocarbamol 750 mg tablet take 1 tablet by ORAL route every 8 hours 750 MG - Active methocarbamol 750 mg tablet take 1 tablet by ORAL route every 6 hours 750 MG - Active oxycodone 5 mg tablet take 1 Tablet by ORAL route every 6 hours as needed for pain - Active oxycodone 5 mg tablet take 1 - 2 Tablet by ORAL route every 6 hours as needed for pain for G89.18 - Active prednisone 5 mg tablet Take prednisone 20 mg. orally daily X 3 days then 15 mg. daily X 3 days then 10 mg. daily X 3 days then 5 mg. daily X 3 days - Active methocarbamol 750 mg tablet take 1 tablet by ORAL route every 6 hours 750 MG - Active oxycodone 5 mg tablet take 1 - 2 Tablet by ORAL route every 4 - 6 hours as needed for pain for G89.18 5 MG - Active oxycodone 5 mg tablet take 1 - 2 Tablet by ORAL route every 4 - 6 hours as needed for pain 5 MG - Active oxycodone 5 mg tablet take 1 - 2 Tablet by ORAL route every 4 - 6 hours as needed for pain for G89.18 5 MG - Active oxycodone 5 mg tablet take 1 - 2 Tablet by ORAL route every 5- 6 hours as needed for pain for G89.1 - Active OXYCODONE-ACETAMINOP HEN (unknown strength) Not Available - Active LOSARTAN POTASSIUM (unknown strength) Not Available - Active NORCO (unknown strength) Not Available - Active LIPITOR (unknown strength) Not Available - Active Procedures Procedure Date OFFICE/OUTPATIENT VISIT EST Phone Office/Outpatient Visit,Est, Low 2023 Postop Followup Visit X-Ray Exam Lower Spine 2-3 Views 2023 Postop Followup Visit TLIF - Includes PSF at the same level Ap LINDER FACETC/FRMT ARTHRD LUM 1 Posterior Instrumentation, Non-segmental PEEK/ Cage/ Implant, For Interbody Fusio n Lami, Facetectomy/Foraminotomy, Lumbar ( Stenosis) Pre Op OFFICE/OUTPATIENT VISIT EST Phone Office/Outpatient Visit,[facility] 2023 X-Ray Exam Lwr Spine, Min 4 Views Office/Outpatient Visit,[facility] [place] Advance Directives Directive Yes / No Effective Date File Name No Information Encounters Encounter Description Practice Location Reason(s) For Visit Diagnoses Date Provider Providers Copied on Encounter OFFICE/OUTPA TIENT VISIT EST Phone [facility], [address], [place], [place], [id number] , [place] tel:[phone] [facility] - [facility] No Information 4 Dede Borden. [address] [place] [address], [place], [place], [id number] , [place]. tel:[phone] Referring Provider: Chris Ann, [facility] [address], [place], [address]. tel:[phone] Office/Outpa tient Visit,Est, Low [facility], [address], [facility], [address] , [place] tel: [phone] [facility] Post Op - Normal Follow-up 4 Mehbod Amir. [facility], [address] [place] [address] 600, [place], [place], [id number] , [place]. tel: [phone] Referring Provider: Chris Ann, [facility] [address], [place], [address]. tel:[phone] [facility], [address], [place], [address] , [place] tel: [phone] [facility] Encounter for other specified surgical aftercare 4 Dede Borden. [address] [place] [address], [facility] [place], [address] , [place]. tel: [phone] Referring Provider: Chris Ann [email or web address] [address] [facility], [place], [address]. tel:[phone] [facility], [address], [facility] [place], [address] , [place] tel: [phone] [facility] Encounter for other specified surgical aftercare [address] [facility], [address] [place] [address], [place], [place], [address] , [place]. tel: [phone] Referring Provider: Chris Ann [employer] [address] [facility], [place], [address]. tel:[phone] [facility], [address], [facility] [place], [address] , [place] tel: [phone] [facility] No Information 4 Mehbod Amir. [facility], [address] [place] [address], [facility] [place], [address] , [place]. tel: [phone] [facility], [address], [facility] [place], [address] , [place] tel: [phone] [facility] No Information Apr-2 2-202 4 Mehbod Amir. [facility], [address] [place] [address] [address], [place], [place], [address] , [place]. tel: [phone] [facility], [address], [place], [address] , [place] tel: [phone] [facility] No Information Apr-1 8-202 4 Mehbod Amir. [facility], [address] [place] [address] [address], [place], [address] , [place]. tel: [phone] [facility], [address], [place], [address] , [place] tel: [phone] [facility] No Information Apr-1 6-[address] [facility], [address] [place] [address] [address], [place], [address] , [place]. tel: [phone] [facility], [address], [place], [address] , [place] tel: [phone] [facility] No Information Apr-1 5-202 4 Mehbod Amir. [facility], [address] [place] [address] [address], [place], [address] , [place]. tel: [phone] [facility], [address], [place], [address] , [place] tel: [phone] [facility] No Information Apr-1 0-202 4 Mehbod Amir. [facility], [address] [place] [address] [address], [place], [address] , [place]. tel: [phone] [facility], [address], [place], [address] , [place] tel: [phone] [facility] No Information Apr-0 8-202 4 Mehbod Amir. [facility], [address] [place] [address] [address], [place], [address] , [place]. tel: [phone] [facility], [address], [place], [address] , [place] tel: [phone] [facility] No Information 4 Mehbod Amir. [facility], [address], [place], [address] , [place]. tel: [phone] Referring Provider: Chris Ann, [address], [place], [address]. tel:[phone] Pre Op OFFICE/OUTPA TIENT VISIT EST Phone [facility], [address], [place], [address] , [place] tel: [phone] ALIC[facility] No Information 4 Dede Borden. [address] [place] [address], [place], [address] , [place]. tel: [phone] Referring Provider: Chris Ann, [facility] [address], [place], [address]. tel:[phone] Office/Outpa tient Visit,New, Mod [facility], [address], [facility] [place], [address] , [place] tel: [phone] [facility] Spondylolisthesis , lumbar regionSpinal stenosis, lumbosacral regionOther intervertebral disc displacement, lumbar region Fe- 4 Mehbod Amir. [facility], [address] [place] [address], [facility] [place], [address] , [place]. tel: [phone] Referring Provider: Carol Clements, [address], [place], [address]. tel:[phone] Office/Outpa tient Visit,New, Mod [facility], [address], [facility] [place], [address] , [place] tel: [phone] [facility] OVERWEIGHTHyperte nsion, UnspecifiedCervic algiaCervical sprain 5 Mehbod Amir. [facility], [address] [place] [address], [facility] [place], [address] , [place]. tel:[phone] Referring Provider: Carol Clements [facility] [address], [place], [address]. tel:[phone] Family History Family Member Type Diagnosis Age At Onset Father Problem (finding) Cardiovascular disease Mother Problem (finding) Osteoarthritis Father Problem (finding) Hypertension Mother Problem (finding) Stroke Payers Payer name Insurance type Covered constitution party [place]iza [place]ion([place] [id number] [facility] [id number] Social History Type Description Quantity Date Captured Comments Sex Female Smoking Status No Information Chief Complaint And Reason For Visit No Information Reason For Referral Reason For Referral No Information Plan Of Treatment Date Type Action Status Future Order: Radiology Order AP -Unq-Vmkc-Xcs Lum (APLatFlExL), Ordered on: Ordered History Of Present Illness Encounter Date Complaint History Of Prese nt Illness No Information Functional Status Date Functional Assessmen t No Information Instructions Date Instruction Additional Infor daisy Exercise education Related to Un specified Essential Hypertension Weight Management Related to Ove rweight Assessments Type Assessment Date No Information Patient Care Teams Name Effective Dates (start - stop) Status Members No Information
--- OUTSIDE RECORDS SUMMARY | 2024-06-08 07:49 | XMS_ITS | Referral Summary ---
Author Organization [facility] Address [address] [place] [address]. [place] [address] Care Team Providers Care Editor Continuity And Script Name Role Phone Jesjoseluis Carol Ann Primary Care Provider [phone] Allergies Active Allergy Reactions Criticality Noted Date [...] CDT Plan of Treatment Not on file Procedures Procedure Name Priority Date/Time Associated Diagnosis Comments COMPREHENSIVE METABOLIC PANEL STAT 04/15/2022 2:26 PM CDT from Last 3 Months or Most Recently Relevant to Health Maintenance Results * (ABNORMAL) Comprehensive metabolic panel (04/15/2022 2:26 PM CDT) [facility] Sodium 141 136 - 145 mmol/L 04/15/2022 3:05 PM [facility] Potassium 3.3(L) 3.5 - 5.0 mmol/L 04/15/2022 3:05 PM [facility] Chloride 103 98 - 107 mmol/L 04/15/2022 3:05 PM [facility] Carbon Dioxide (CO2) 30 22 - 31 mmol/L 04/15/2022 3:05 PM [facility] Anion Gap 8 5 - 18 mmol/L 04/15/2022 3:05 PM [facility] Urea Nitrogen 22 8 - 22 mg/dL 04/15/2022 3:05 PM [facility] Creatinine 1.02 0.60 - 1.10 mg/dL 04/15/2022 3:05 PM [facility] Calcium 9.6 8.5 - 10.5 mg/dL 04/15/2022 3:05 PM [facility] Glucose 112 70 - 125 mg/dL 04/15/2022 3:05 PM [facility] Alkaline Phosphatase 61 45 - 120 U/L 04/15/2022 3:05 PM [facility] AST 23 0 - 40 U/L 04/15/2022 3:05 PM [facility] ALT 24 0 - 45 U/L 04/15/2022 3:05 PM [facility] Protein Total 7.5 6.0 - 8.0 g/dL 04/15/2022 3:05 PM [facility] Albumin 3.8 3.5 - 5.0 g/dL 04/15/2022 3:05 PM [facility] Bilirubin Total 0.5 0.0 - 1.0 mg/dL 04/15/2022 3:05 PM [facility] GFR Estimate 62 >60 mL/min/1.7 3m2 04/15/2022 3:05 PM [facility] Comment:Effective August 082020 eGFRcr in adults is calculated using the 2020 CKD-EPI creatinine equation which includes age and gender (Bonnie et al., NEJ, DOI: 10.1056/EOTQvp6695207) Blood VENOUS LINE / Unknown Venipuncture / Unknown 04/15/2022 2:26 PM CDT 04/15/2022 2:31 PM CDT Kain Olsen MD LAB - BLOOD ORDERABL ES [facility] [address] [place] [address], [facility] [phone] from Last 3 Months or Most Recently Relevant to Health Maintenance Care Teams Editor Continuity And Script Relationship Specialty Start Date End Date Carol Clements [address] [place] [address] PCP - General Physician Explosive Ordnance Specialist 04/15/22
--- OUTSIDE RECORDS SUMMARY | 2024-06-08 07:49 | XMS_ITS | Clinical Summary ---
Author Organization [place] Address [address] [place] [address]. [place] [address] Care Team Providers Care Clay Stain Mixer Name Role Phone Jesjoseluis Carol Ann Primary Care Provider [phone] Allergies Active Allergy Reactions Criticality Noted Date [...] HEPATITIS C SCREENING 1978 PAP 1981 LIPID 2000 ZOSTER IMMUNIZATION (1 of 2) 2010 PHQ-2 (once per calendar year) 2023 COVID-19 Vaccine (3 - 2023-2 5 season) 2024 01/28/2021, 01/07/2021 INFLUENZA VACCINE (#1) 2024 6, 09/17/2012 GLUCOSE 04/15/2025 04/15/2022 DTAP/TDAP/TD IMMUNIZATION (2 - Td or Tdap) 08/27/2026 08/27/2016 RSV VACCINE (1 - 1-dose 75+ series) 2035 HPV IMMUNIZATION Aged Out No longer e [...] Comprehensive metabolic panel (04/15/2022 2:26 PM CDT) Sodium 141 136 - 145 mmol/L 04/15/2022 3:05 PM CDT [facility] Potassium 3.3(L) 3.5 - 5.0 mmol/L 04/15/2022 3:05 PM T [facility] Chloride 103 98 - 107 mmol/L 04/15/2022 3:05 PM [facility] Carbon Dioxide (CO2) 30 22 - 31 mmol/L 04/15/2022 3:05 PM [facility] Anion Gap 8 5 - 18 mmol/L 04/15/2022 3:05 PM [facility] Urea Nitrogen 22 8 - 22 mg/dL 04/15/2022 3:05 PM [facility] Creatinine 1.02 0.60 - 1.10 mg/dL 04/15/2022 3:05 PM [facility] Calcium 9.6 8.5 - 10.5 mg/dL 04/15/2022 3:05 PM T [facility] Glucose 112 70 - 125 mg/dL 04/15/2022 3:05 PM [facility] Alkaline Phosphatase 61 45 - 120 U/L 04/15/2022 3:05 PM [facility] AST 23 0 - 40 U/L 04/15/2022 3:05 PM [facility] ALT 24 0 - 45 U/L 04/15/2022 3:05 PM [facility] Protein Total 7.5 6.0 - 8.0 g/dL 04/15/2022 3:05 PM [facility] Albumin 3.8 3.5 - 5.0 g/dL 04/15/2022 3:05 PM [facility] Bilirubin Total 0.5 0.0 - 1.0 mg/dL 04/15/2022 3:05 PM [facility] GFR Estimate 62 >60 mL/min/1.7 3m2 04/15/2022 3:05 PM [facility] Comment:Effective August 082020 eGFRcr in adults is calculated using the 2020 CKD-EPI creatinine equation which includes age and gender (Bonnie et al., NEJM, DOI: 10.1056/SEJUmm8904661) Blood VENOUS LINE / Unknown Venipuncture / Unknown 04/15/2022 2:26 PM CDT 04/15/2022 2:31 PM CDT Kain Olsen MD LAB - BLOOD ORDERABL ES [facility] [address] [place] [address], [facility] [phone] from Last 3 Months or Most Recently Relevant to Health Maintenance Care Teams Clay Stain Mixer Relationship Specialty Start Date End Date Carol Clements [address] [place], [place] [phone] PCP - General Physician Transportation Technician 04/15/22
--- OUTSIDE RECORDS SUMMARY | 2024-06-08 07:49 | XMS_ITS | Data Portability ---
Author Organization [place] [facility] Address [address] [facility] [address] [place] [address] Care Team Providers Care Computer Tech Name Role Phone [facility] Referring Provider [phone] ELLE CORREA Referring Provider [facility] Physical Therapist Assessment Encounter Date Assessment Date [...] contact patient to schedule visit 2022 023 [facility] [place], [address], [place], [address], 16:58:01 Procedures None recorded. Surgeries None recorded. Imaging CT, temporal bone, w/o contrast 2022 023 tnasciment o1 [place], [facility] [address] [facility], [facility] [address], [place], [address], 16:55:48 Medication Orders None recorded. Patient TargetsNo targets recorded. Patient Instructions Encounter Date Encounter Id Patient Instructions Last Modified By Organization Details Last Modified Time 07/21/2023 [id number] Self Care for TMD Not avai lable [...] Name Description Value Unit Range Abnormal Flag Note LastModifiedBy Organization Detail LastModifiedTime 07/21/20 23 07/21/2023 oral appli ance prepa ratio n* Type of appliance mandib ular stabil izatio n applia nce Not Available [facility] [address], [place], [address], 07/20/2023 16:28:33 07/21/20 CT, tempo ral bone, w/o contr ast No observ ation record ed. [facility] [address], [place], [address], 07/21/2023 16:30:14 Result Notes None recorded. 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 Procedures Surgical History Date Name Laterality Status Provider Name and Address Organization Details Recorded Time 7 Joint Replacement completed Clair Hall [facility] 07/21/2023 14:29:57 3 Metal Sorter Surgery completed Clair Hall [facility] 07/21/2023 14:29:57 4 Tubal Ligation completed Clair Hall [facility] 07/21/2023 14:29:57 Metal Sorter Surgery completed Clair Hall [facility] 07/21/2023 14:29:57 [place] Teeth Extraction completed Clair Hall [facility] 07/21/2023 14:29:57 Imaging Results Imaging Date Name Status LastModified by Organiz ation Details LastModified Time 07/21/2023 CT, temporal bone, w/o contrast completed [email or web address] [facility] [address], [place], [address], 07/21/2023 16:30:14 Procedure Notes None recorded. Medical Equipment None Reported. Allergies Allergen ID Allergen Name Allergen Category Reaction Reaction Severity Criticality Documentation Date Start Date Code Code System Note Provider Name and Address Organization Details Recorded Time 95683 Penicilli n Not available hives severe Not available 07/21/20231971 78773 RxNorm Clair bowman [facility] 14:29:31 Medications [...] 07/21/2023 80 /min 153 mm[Hg] 94 mm[Hg] Susan Orosco [facility] 07/21/2023 14:37:05 Social History Question Answer Notes LastModified by Organizat ion Details LastModified Time Tobacco Smoking Status Never Smoker Clair bowman [facility] 07/21/2023 14:29:54 What Is Your Level Of Alcohol Consumption? Occasional Information not available 07/21/2023 What Is Your Level Of Caffeine Consumption? Occasional [email or web address] Information not available 07/21/2023 Are You Currently Employed? Yes [email or web address] Information not available 07/21/2023 What Type Of Diet Are You Following? REGULAR Information not available 07/21/2023 Do You Reside In Or Have You Traveled To An Area Where Ebola Virus Transmission Is Active? No [email or web address] Information not available 07/21/2023 What Is The Highest Grade Or Level Of School You Have Completed Or The Highest Degree You Have Received? 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 (0=no Pain, 10=pain As Bad As You Can Imagine) 4 [email or web address] Information not available 07/21/2023 What Number Best Describes How, During The Past Week, Pain Has Interfered With Your Enjoyment Of Life? (0=does Not Interfere, 10= Completely Interferes) 2 [email or web address] Information not available 07/21/2023 What Number Best Describes How, During The Past Week, Pain Has Interfered With Your General Activity? (0=does Not Interfere, 10=completely Interferes) 2 [email or web address] Information not available 07/21/2023 How Did Primary Problem Begin? Don't Remember, Got Much Worse After Dentist Visit [email or web address] Information not available 07/21/2023 How Many Children Do You Have? 4 [email or web address] Information not available 07/21/2023 What Is Your Relationship Status? [email or web address] Information not available 07/21/2023 Do You Feel Stressed (tense, Restless, Nervous, Or Anxious, Or Unable To Sleep At Night)? [id number] Information not available 07/21/2023 Do You Use Any Illicit Or Recreational Drugs? No [email or web address] Information not available 07/21/2023 How Many Years Have You Smoked Tobacco? 0 [email or web address] Information not available 07/21/2023 Sex: Unknown Functional Status Question Answer Note LastModified by Organizat ion Details LastModified Time What is your exercise level? Occasional [email or web address] Information not available 07/21/2023 Mental Status None recorded. Family History Relationship Description Onset Age of this Age Resolved Age Notes LastModified by Organization Details LastModified Time Father Arthritis [email or web address] Not avail able 07/21/2023 14:29:36 Father Rheumatoid arthritis [email or web address] Not available 07/08 14:29:36 Medical History Condition Response Muscle, Joint, or Bone Problems Y Arthritis Y Hypertension Y High Cholesterol Y Gynecological HistoryNo gynecological history recorded. 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 9187222379 1441070 M26.632 Sleep related bruxism 27 8389526 G47.63 Health Concerns Section Related Observation LastModified by Organization Detai ls LastModified Time None Recorded Concern Status LastModified by Organization Details LastModified Time None Recorded Advance Directives Directive None Recorded Payers Encounter Date Sequence Insurance Name Policy Number Policy Harden Covered Member ID Harden Member ID Guarantor Name 07/21/2023 1 [employer] [id number] Eda Fernández [id number] Eda Fernández Notes Date Note Type Note [...] 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 TERESE PELAEZ DDS,MS [address] [facility] [address], [place], [address], [facility] 07/21/2023 16:55:52 OBGyn Episode No OBEpisode recorded.
--- OUTSIDE RECORDS SUMMARY | 2024-06-08 07:49 | XMS_ITS | Clinical Summary ---
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 30 tablet 9 Active levalbuterol (XOPENEX HFA) 45 mcg/actuation inhalerIndications: Acute bronchitis, unspecified organism Inhale 1-2 Puffs by mouth every 4 hours if needed for Shortness Of Breath or Wheezing. 15 g 3 Active acetaminophen (TYLENOL EXTRA STRGTH) 500 mg tabletIndications:D isplacement of lumbar intervertebral disc without myelopathy Take 2 Tablets (1,000 mg) by mouth every 6 hours. Max acetaminophen dose: 4000mg in 24 hrs. 90 Tablet 4 Active methocarbamoL (ROBAXIN) 750 mg tabletIndications:D DD (degenerative disc disease), cervical Take 1 Tablet (750 mg) by mouth every 6 hours if needed for Muscle Spasm. 30 Tablet 4 Active losartan (COZAAR) 100 mg tabletIndications:H TN (hypertension) Take 0.5 Tablets (50 mg) by mouth once daily. Do not take if systolic blood pressure (top number) is less than 120. 4 Active cholecalciferol, Vitamin D3, (Vitamin D-3) 5,000 unit tab tablet Take 1 Tablet (5,000 units) by mouth once daily. 4 Active gabapentin (NEURONTIN) 600 mg tabletIndications:L umbar radiculopathy Take 1 Tablet (600 mg) by mouth three times daily. 90 Tablet 5 4 Active rosuvastatin (CRESTOR) 40 mg tabletIndications:D yslipidemia Take 1 Tablet (40 mg) by mouth at bedtime. 90 Tablet 4 Active tirzepatide, weight loss, (Zepbound) 2.5 mg/0.5 mL penIndications:Obes ity (BMI 30.0-34.9) Inject 2.5 mg subcutaneous once weekly. 6 mL 4 Active polyethylene glycol-electrolyte (GOLYTELY) 236-22.74-6.74 -5.86 gram suspensionIndicatio ns:Encounter for screening colonoscopy Drink 2 liters (half the bottle) the day before colonoscopy and 2 liters (remaining prep) 6 hours prior to colonoscopy appointment. 4000 mL 4 Active fluticasone (50 mcg per actuation) nasal solution (FLONASE)Indication s:Acute non-recurrent pansinusitis Inhale 2 Sprays to both nostrils once daily. 16 g 4 Active hydroquinone 4 % creamIndications:So lar elastosis Apply topically to affected area(s) two times daily. 46 g 2 4 Active phentermine (ADIPEX-P) 37.5 mg tabletIndications:O besity (BMI 30.0-34.9) Take 1 Tablet (37.5 mg) by mouth once daily before a meal. 30 Tablet 4 Active HYDROcodone-acetami nophen (5-325 mg/tablet)Indicatio ns:Lumbar radiculopathy Take 1 Tablet by mouth 3 times daily if needed for Pain. Max acetaminophen dose: 4000 mg in 24 hrs. 60 Tablet 4 Active predniSONE (DELTASONE) 10 mg tabletIndications:L umbar radiculopathy,Cervi dana radiculopathy Take 2 Tablets (20 mg) by mouth two times daily with meals for 3 days, THEN 1 Tablet (10 mg) three times daily with meals for 3 days, THEN 2 Tablets (20 mg) once daily with a meal for 3 days, THEN 1 Tablet (10 mg) once daily with a meal for 3 days. 30 Tablet 4 06/15/20 24 Active sennosides-docusate (SENOKOT S) (8.6-50 mg) tabletIndications:D isplacement of lumbar intervertebral disc without myelopathy Take 1-4 Tablets by mouth two times daily. 40 Tablet 4 05/12/20 24 Discontinue d(*Patient states no longer taking) HYDROcodone-acetami nophen (5-325 mg/tablet)Indicatio ns:Lumbar radiculopathy Take 1 Tablet by mouth 3 times daily if needed for Pain. Max acetaminophen dose: 4000 mg in 24 hrs. 60 Tablet 4 06/03/20 24 Discontinue d(Reorder (E-cancel not sent)) clindamycin (CLEOCIN) 300 mg capsuleIndications: PROPHYLAXIS Take 2 Capsules (600 mg) by mouth one time for 1 dose. Take on morning of procedure 2 Capsule 4 06/06/20 24 Active Problems Problem Noted Date Diagnosed Date Melanoma 06/03/2024 Overview (06/03/2024): 05/31/24: left distal lower leg, MIS, needs excision Primary hypertension 12/08/2023 Myofascial pain 07/20/2023 Overview (03/08/2024): masticatory and cervical H/O total hysterectomy 01/01/2022 DDD (degenerative disc disease), cervical 2014 Cervical myofascial pain syndrome 02/14/2015 Hypercholesterolemia 01/29/2011 Displacement of lumbar inter vertebral disc without myelopathy 10/23/2008 Resolved Problems Problem Noted Date Diagnosed Date Resolved Date Hip impingement syndrome 02/14/201506/2015 Mild osteoarthritis of right hip 02/14/2015 09/11/2016 Encounters Date Type Department Care Team Description 06/06/2024 Orders Only [facility] [id number] [place] [address] Jud Shrestha MD <No scans attached> 06/05/2024 Travel 06/03/2024 10:20 AM CDT Office Visit [facility] [address] [place] [address] Chris Eason MD Musculoskeletal Problem (Consult bilateral hand numbness/Consult right hip pain) 06/03/2024 Telephone [facility] [address] [place] [address] Romi Caputo PA Results 06/03/2024 Travel 06/01/2024 2:40 PM CDT Office Visit [facility] [address] [place] [address] Carol Clements PA Weight (Discuss weight loss options); Dizziness (Lightheaded ) 06/01/2024 10:00 AM CDT Office Visit [facility] [address] [place] [address] Ann Rodriguez, PINKY Eye Exam (CEE) 05/31/2024 11:10 AM CDT Office Visit [facility] [address] [place] [address] Romi Caputo PA Derm Problem 05/31/2024 Travel 05/22/2024 Refill [facility] [address] [place] [address] Carol Clements PA Refill Request (Fluticasone (50 Mcg Per Actuation) Nasal) 05/12/2024 1:15 PM CDT Ancillary Procedure [facility] [address] [place] [address] 05/12/2024 12:10 PM CDT Office Visit [facility] [address] [place] [address] Patricia Diaz PA Weight (Zepbound denied); Numbness (Bilat hands); Dizziness (Light headed) 05/12/2024 Travel 05/12/2024 Telephone [facility] [address] [place] [facility] [place] [address] Jose Levine MD Appointment Reminder (Colonoscopy) 05/06/2024 Telephone [facility] [address] [place] [address] Jose Levine MD Screening 04/29/2024 Transcribe Orders [facility] [address] [place] [address] Michi Aguayo PA 04/12/2024 Telephone [facility] [address] [place] [address] Patricia Diaz PA Prior Authorization (tirzepatide, weight loss, (Zepbound) 2.5 mg/0.5 mL pen (PA EXCLUDED MEDICATION)) 04/06/2024 1:40 PM CDT Ancillary Procedure [facility] [address] [place] [address] 04/06/2024 10:10 AM CDT Office Visit [facility] [address] [place] [address] Patricia Diaz PA Weight (wants to discuss weight loss options) 04/06/2024 Travel 03/14/2024 Orders Only [facility] Scanner 1 scan: (1-Ord) [place], LUMBAR SPINE, 03/14/2024 03/08/2024 8:50 AM CDT Office Visit [facility] [address] [place] [address] Patricia Diaz PA Follow Up (back surgery in December, fall occurred last month and was told to have lab and vital work up.) 03/08/2024 Travel from Last 3 Months Immunizations Name Administration Dates Next Due COVID-19 vaccine (POPAPP 30mcg/0.3mL) VERO Clement 01/28/2021,01/07/2021 Influenza, IIV3 (Age >=3 years) 09/17/2012 Influenza, IIV4 08/27/2016 Tdap 08/27/2016 Family History Medical History Relation Name Comments Hypertension Brother Arthritis Father Heart Disease Father bypass; Hyperlipidemia Father Hypertension Father Other Mother colon polyps Stroke Mother Valvular heart disease Mother Heart Disease Paternal Grandfather Cancer-breast No Family History Cancer-ovarian No Family History Relation Name Status Comments Brother Father (Age 62) blood clot following bypass Mother Alive Paternal Grandfather Social History Tobacco Use Types Packs/Day Years Used Date Smoking Tobacco: Never Smokeless Tobacco: Never Tobacco Cessation:Counseling Given: Yes Alcohol Use Standard Drinks/Week Comments Yes 0 (1 standard drink = 0.6 oz pur e alcohol) 1 drink/week PHQ-2 Answer Date Recorded PHQ-2 TOTAL SCORE 0 04/06/2024 Social Connections Answer Date Recorded Frequency of Communication with Friends and Fami ly 0 06/01/2024 Financial Resource Strain Answer Date R ecorded Difficulty of Paying Living Expenses 2 06/01/2024 Difficulty of Paying Living Expenses 1 06/01/2024 Food Insecurity Answer Date Recorded Worried About Running Out of Food in the Last Ye ar 1 06/01/2024 Transportation Needs Answer Date Record ed Lack of Transportation (Medical) 1 06/01/2024 Housing Stability Answer Date Recorded Unable to Pay for Housing in the Last Year 1 06/01/2024 Sex and Gender Information Value Date Recorded Sex Assigned at Not on file Gender Identity Not on file Sexual Orientation Not on file Obstetrics History Last Filed Vital Signs Vital Sign Reading Time Taken Comments Blood Pressure 157/95 06/03/2024 10:34 AM CDT Pulse 76 06/03/2024 10:34 AM CDT Temperature 36.7 ??C (98 ??F) 06/03/2024 10: 34 AM CDT Respiratory Rate 20 01/05/2024 4:23 PM CDT Oxygen Saturation 99% 06/03/2024 10: 34 AM CDT Inhaled Oxygen Concentration - - Weight 77.4 kg (170 lb 11.2 oz) 024 10:34 AM CDT Height 159 cm (5' 2.6) 04/06/2024 10:1 2 AM CDT Body Mass Index 30.63 04/06/2024 10:12 AM CDT Plan of Treatment Upcoming Encounters Date Type Department Care Team (Late st Contact Info) Description 06/08/2024 1:15 PM CDT Ancillary Procedure [facility] [address] [address] 06/10/2024 9:45 AM CDT Ancillary Procedure [facility] [address] [address] 06/13/2024 9:20 AM CDT Orders Only [facility] [address] [address] 06/15/2024 9:30 AM CDT Procedure Only [facility] [address] [address] [place] [address] [place] [address] 06/29/2024 10:30 AM CDT Office Visit [facility] [address] [place] [address] Carol Clements PA [address] [place] [address] 07/15/2024 9:15 AM DAY CARE HOME PROVIDER Appointment [facility] EMG/EEG/EP [address] [address] Jose J Murguia MD [address] [place] [address] 08/10/2024 9:40 AM DAY CARE HOME PROVIDER Office Visit [facility] [address] [place] [address] Chris Eason MD [address] [place] [address] 08/29/2024 9:50 AM DAY CARE HOME PROVIDER Office Visit [facility] [address] [address] [place] [address] [place] [address] [place] [address] Health Maintenance Due Date Last Done Comments Pneumococcal series for age 6-64 (1 of 2 - PCV) 1966 HIV for age 15-65 1975 Hepatitis C screening for ag e 18-79 1978 Zoster (shingles) series for age 50+ (1 of 2) 1979 Colonoscopy through age 75 01/10/2016 01/09/2006 COVID-19 vaccine series (3 - Pfizer risk series) 02/25/2021 01/28/2021, 01/07/2021 Influenza for age 50-64 05/08/2024 08/27/20 16, 09/17/2012, 09/16/2011 (Declined) BMI (ht and wt on same day) for age 18+ 04/06/2025 04/06/2024, 06/30/2023, 09/20/2021, Additional history exists Depression screening for age 12+ 04/06/2025 04/06/2024, 07/15/2017, 10/31/2015 Mammogram for age 45-75 04/06/2025 04/06/20 24, 05/20/2021, 10/04/2015, Additional history exists Tetanus booster 08/27/2026 08/27/2016, 04/07 (Declined) Lipids for age 45-75 03/08/2029 03/08/2024, 04/22/2023, 11/26/2022, Additional history exists Tdap Completed 08/27/2016 Medical Devices Implanted Type Area Financial Reporting Accountant Device Identifier Shelf Expiration Date Model / Serial / Lot [id number] one Matrix 3cc Isha Dbf Putty Dbm Implanted:Qty: 1 on 12/08/2023 by Natalie Burns MD at [facility] [employer] Spine/Ortho 11/01/2025 [id number] / [id number] / Bone 1-4mm 30cc Medtronic Chips Canclls Freeze Dried - [id number] Implanted:Qty: 1 on 12/08/2023 by Natalie Burns MD at [facility] [employer] Spine/Ortho 11/05/2027 [id number] / [id number] / Spacer Lmbr 9x22mm Capstone Tlif Peek - [id number] Implanted:Qty: 1 on 12/08/2023 by Natalie Burns MD at [facility] [employer] Spine/Ortho 09/21/2026 [id number] / / [id number] Set Screw Lmbr Ant 5.5mm Solera Break Off - [id number] Implanted:Qty: 4 on 12/08/2023 by Natalie Burns MD at [facility] [employer] Spine/Ortho [id number] / / Markell Lmbr 35x5.5mm Solera 5.5/6 Cvd Titnm - [id number] Implanted:Qty: 2 on 12/08/2023 by Natalie Burns MD at [facility] [employer] Spine/Ortho [id number] / / Screw Lmbr Post 6.5x40mm Solera 5.5/6 Va Cocr - [id number] Implanted:Qty: 1 on 12/08/2023 by Natalie Burns MD at [facility] [employer] Spine/Ortho [id number] / / Screw Lmbr Post 6.5x45mm Solera 5.5/6 Va Cocr - [id number] Implanted:Qty: 3 on 12/08/2023 by Natalie Burns MD at [facility] [employer] Spine/Ortho [id number] / / Procedures Procedure Name Priority Date/Time Associated Diagnosis Comments PATH TISSUE EXAM Routine 05/31/2024 11:3 0 AM CDT Neoplasm of uncertain behavior of skin MR SPINE LUMBAR WO Routine 05/12/2024 1: 21 PM CDT Spinal stenosis, lumbar region, without neurogenic claudication XR MAMMO BILAT SCREENING Routine 04/06/2024 1:56 PM CDT Visit for screening mammogram SCAN-RADIOLOGY REPORT 03/14/2024 12:00 AM CDT CBC WITH AUTO DIFFERENTIAL Routine 03/08/2024 9:40 AM CDT Lightheadedness LIPID PANEL W REFLEX MEASURED LDL Routine 03/08/2024 9:40 AM CDT Dyslipidemia VITAMIN B12 Routine 03/08/2024 9:40 AM CDT Lightheadedness TSH WITH REFLEX Routine 03/08/2024 9:40 AM CDT Lightheadedness Weight gain COMP METABOLIC PANEL Routine 03/08/2024 9:40 AM CDT Primary hypertension Lightheadedness Dyslipidemia CBC WITH AUTO DIFFERENTIAL Routine 03/08/2024 9:40 AM CDT Lightheadedness from Last 3 Months Results * PATH TISSUE EXAM (05/31/2024 11:30 AM CDT) Case Report Pathology Report ?Case: [id number] ? Authorizing Provider: ??Romi Caputo ? Collected: ? 05/31/2024 1130 ? EMILY Odom ? Ordering Location: ? [facility] ?Received: ?05/31/2024 1225 ? Specialty Clinic ? Pathologist: ? Kaci Barry MD ? Specimen: ?Left Leg, left distal lower leg ? 06/02/2024 1:37 PM T [facility] Final Diagnosis A) SKIN, LEFT DISTAL LOWER LEG, BIOPSY: 1. Melanoma in situ: ?? a. Margin status: Negative in the plane of section examined ?? b. See comment 2. Negative for invasive malignancy 06/02/2024 1:37 PM [facility] Comment A) Excision with 0.5 cm clear margins is recommended along with close clinical follow up. Based on the features of this biopsy, the AJCC stage is pTis. 06/02/2024 1:37 PM [facility] Clinical Information Rule out atypia 06/02/2024 1:37 PM [facility] Gross Description A) Received in formalin, labeled with the patient's name and L distal lower leg, is a 0.9 x 0.9 cm skin biopsy. There is a 0.6 x 0.4 cm flat variegated brown lesion. The specimen is inked blue, trisected and entirely submitted in one cassette. [facility] 05/31/2024 06/02/2024 1:37 PM [facility] Microscopic Description The final diagnosis is based on microscopic examination of appropriate sections of all specimens. The presence of blue ink is confirmed on tissue sections. Additional deeper level sections are examined. 06/02/2024 1:37 PM CDT [facility] Additional Information Interpreted at [facility] [email or web address], Central Laboratory - [address] [place] [address] [address], [place] [address] 06/02/2024 1:[address] [facility] Other (Left Leg) Non-Blood / Unknown 05/31/2024 11:30 AM CDT 05/31/2024 12:25 PM CDT Romi DIAZ PATHOLOGY/C YTOLOGY [facility] [employer] [facility] [address] [place] [address], * MR SPINE LUMBAR WO (05/12/2024 1:21 PM CDT) Anatomical Region Laterality Modality Spine, LUMBAR SPINE Magnetic Res onance 05/13/2024 9:08 AM CDT Impressions 05/13/2024 9:08 AM CDT 1. Transitional segment designated L5 in this report. 2. Since prior MRI, postsurgical changes of L4-5 interbody/dorsolateral fusion and laminectomies. No postoperative complications. Granulation tissue/scarring within the ventral/lateral epidural compartment. Laminectomy changes decompress the spinal canal dorsally. 3. At L2-3, mild spinal canal stenosis with a shallow central protrusion contacting the traversing L3 nerve roots. Additional left far lateral protrusion contacts the left L2 nerve root. Mild spinal canal stenosis. Progressed since prior. 4. At L3-4, mild spinal canal stenosis. Stable since prior. Dictated by Patricio Miller MD @ 05/13/2024 9:08:34 AM (Electronically Signed) Narrative 05/13/2024 9:08 AM CDT For Patients: ??As a result of the 21st Century Cures Act, medical imaging exams and procedure reports are released immediately into your electronic medical record. ??You may view this report before your referring provider. ??If you have questions, please contact your health care provider. INDICATION: Lumbar spinal stenosis. Neurogenic claudication. TECHNIQUE : Lumbar spine MRI without contrast. COMPARISON: Lumbar spine MRI from 08/27/2023. FINDINGS : Transitional segment at the lumbosacral junction with left transverse process/sacral ala pseudoarticulation. Designated L5 on this report. Normal lumbar lordosis. Postsurgical changes of L4-5 discectomy with interbody spacer placement endorses letter instrumented fusion. No MRI visualized complications. Laminectomy changes are present at the L4-5 level as well. No recent compression fracture or marrow replacing process. Lower cord/conus signal is normal. The conus terminates at a normal location. No intradural lesion. No extraspinal soft tissue abnormalities. Discs/Endplates: Moderate disc height and loss disc desiccation L2-3, L3-4 and L5-S1. The remaining discs are within normal limits. Findings at individual levels as follows: T11-12: No spinal canal or neural foraminal stenosis. T12-L1: No spinal canal or neural foraminal stenosis. L1-2: No spinal canal or neural foraminal stenosis. L2-3: Mild disc bulge with a shallow central protrusion component which contacts the traversing L3 nerve roots. An additional left far lateral protrusion contacts the left L2 nerve root. Mild spinal canal stenosis. Mild left neural foraminal stenosis. No right neural foraminal stenosis. L3-4: Mild disc bulge, slightly asymmetric to the right. Bilateral low-grade facet arthrosis. Mild spinal canal stenosis and mild bilateral neural foraminal stenosis. L4-5: Postop changes. Spinal canal is decompressed dorsally. Low T1 signal within the left greater than right ventral lateral epidural spaces, most compatible with granulation tissue/scar. Foraminal endplate spurring with mild bilateral neural foraminal stenosis. L5-S1: No spinal canal or neural foraminal stenosis. Imaged SI joints: Within normal limits. Imaged sacrum: Within normal limits. Procedure Note Patricio Miller MD - 05/13/2024 For Patients: As a result of the 21st Century Cures Act, medical imagingexams and procedure reports are released immediately into your electronicmedical record. You may view this report before your referring provider.If you have questions, please contact your health care provider. INDICATION: Lumbar spinal stenosis. Neurogenic claudication. TECHNIQUE : Lumbar spine MRI without contrast. COMPARISON: Lumbar spine MRI from 08/27/2023. FINDINGS : Transitional segment at the lumbosacral junction with left transverseprocess/sacral ala pseudoarticulation. Designated L5 on this report.Normal lumbar lordosis. Postsurgical changes of L4-5 discectomy withinterbody spacer placement endorses letter instrumented fusion. No MRIvisualized complications. Laminectomy changes are present at the L4-5level as well. No recent compression fracture or marrow replacing process.Lower cord/conus signal is normal. The conus terminates at a normallocation. No intradural lesion. No extraspinal soft tissueabnormalities. Discs/Endplates: Moderate disc height and loss disc desiccation L2-3, L3-4and L5-S1. The remaining discs are within normal limits. Findings at individual levels as follows: T11-12: No spinal canal or neural foraminal stenosis. T12-L1: No spinal canal or neural foraminal stenosis. L1-2: No spinal canal or neural foraminal stenosis. L2-3: Mild disc bulge with a shallow central protrusion component whichcontacts the traversing L3 nerve roots. An additional left far lateralprotrusion contacts the left L2 nerve root. Mild spinal canal stenosis.Mild left neural foraminal stenosis. No right neural foraminal stenosis. L3-4: Mild disc bulge, slightly asymmetric to the right. Bilaterallow-grade facet arthrosis. Mild spinal canal stenosis and mild bilateralneural foraminal stenosis. L4-5: Postop changes. Spinal canal is decompressed dorsally. Low T1 signalwithin the left greater than right ventral lateral epidural spaces, mostcompatible with granulation tissue/scar. Foraminal endplate spurring withmild bilateral neural foraminal stenosis. L5-S1: No spinal canal or neural foraminal stenosis. Imaged SI joints: Within normal limits. Imaged sacrum: Within normal limits. IMPRESSION: 1. Transitional segment designated L5 in this report. 2. Since prior MRI, postsurgical changes of L4-5 interbody/dorsolateralfusion and laminectomies. No postoperative complications. Granulationtissue/scarring within the ventral/lateral epidural compartment.Laminectomy changes decompress the spinal canal dorsally. 3. At L2-3, mild spinal canal stenosis with a shallow central protrusioncontacting the traversing L3 nerve roots. Additional left far lateralprotrusion contacts the left L2 nerve root. Mild spinal canal stenosis.Progressed since prior. 4. At L3-4, mild spinal canal stenosis. Stable since prior. Dictated by Patricio Miller MD @ 05/13/2024 9:08:34 AM (Electronically Signed) Michi DIAZ MR * XR MAMMO BILAT SCREENING (04/06/2024 1:56 PM CDT) Anatomical Region Laterality Modality BREASTS, Breast Left, Breast Right Bilateral Mammography Impressions 04/07/2024 1:43 PM CDT ??There is no radiographic evidence for malignancy. ??Recommend annual mammograms. MAMMOGRAM ASSESSMENT: ??ACR 1 Negative PATIENTS: You will also receive a letter with your examination results in an easy to read format. ??If you have questions about your results, please contact your referring provider. Narrative 04/07/2024 1:43 PM CDT For Patients: As a result of the Cures Act, medical imaging exams and procedure reports are released immediately into your electronic medical record. You may view this report before your referring provider. If you have questions, please contact your health care provider. XR MAMMO BILAT SCREENING [[id number]] CLINICAL HISTORY: ??This is an asymptomatic 63 y.o. patient. INDICATION FOR EXAM: Mammogram Screening. TECHNIQUE: CC & MLO views were obtained. ??This study was evaluated with the assistance of Computer-Aided Detection. COMPARISON FILM: Yes 05/20/21 [place] 10/04/15 [place] FINDINGS: ??There are scattered areas of fibroglandular density. There are no dominant masses, suspicious micro calcifications or areas of architectural distortion. Patricia DIAZ MAMMO * SCAN-RADIOLOGY REPORT (03/14/2024 12:00 AM CDT) Anatomical Region Laterality Modality Other Scanner OTHER * (ABNORMAL) CBC WITH AUTO DIFFERENTIAL (03/08/2024 9:40 AM CDT) WHITE BLOOD COUNT 6.5 4.5 - 11.0 thou/cu mm 03/08/2024 10:[address] [facility] RED BLOOD COUNT 4.31 4.00 - 5.20 mil/cu mm 03/08/2024 10:12 PM CDT [facility] LABOR[facility] HEMOGLOBIN 12.4 12.0 - 16.0 g/dL 03/08/2024 10:12 PM CDT [facility] TRAL LABORATORY HEMATOCRIT 38.1 33.0 - 51.0 % 03/08/2024 10:12 PM T [facility]AL [facility] MCV 88 80 - 100 fL 03/08/2024 10:12 PM CDT [facility] MCH 28.8 26.0 - 34.0 pg 03/08/2024 10:12 PM CDT [facility] MCHC 32.5 32.0 - 36.0 g/dL 03/08/2024 10:12 PM T [facility] RDW 12.1 11.5 - 15.5 % 03/08/2024 10:12 [facility] PLATELET COUNT 269 140 - 440 thou/cu mm 03/08/2024 10:12 PM T [facility] MPV 10.2 6.5 - 11.0 fL 03/08/2024 10:12 PM CDT [facility] NRBC 0.0 % 03/08/2024 10:12 PM CDT [facility] ABS NRBC 0.0 thou /cu mm 03/08/2024 10:12 PM [facility] % NEUT 51.3 % 03/08/2024 10:12 PM CDT [facility] % LYMPH 29.2 % 03/08/2024 10:12 PM CDT [facility] % MONO 11.1 % 03/08/2024 10:12 PM CDT [facility] % EOS 6.9 % 03/08/2024 10:12 PM CDT [facility] % BASO 1.2 % 03/08/2024 10:12 PM CDT [facility] % IMMATURE GRAN (METAS,MYELOS,FL OS) 0.3 % 03/08/2024 10:12 PM CDT [facility] ABSOLUTE NEUTROPHILS 3.3 1.7 - 7.0 thou/cu mm 03/08/2024 10:12 PM CDT [facility] ABSOLUTE LYMPHOCYTES 1.9 0.9 - 2.9 thou/cu mm 03/08/2024 10:12 PM CDT [facility] ABSOLUTE MONOCYTES 0.7 <0.9 thou/cu mm 03/08/2024 10:12 PM CDT [facility] ABSOLUTE EOSINOPHILS 0.5(H) <0.5 thou/cu mm 03/08/2024 10:12 PM CDT [facility] ABSOLUTE BASOPHILS 0.1 <0.3 thou/cu mm 03/08/2024 10:12 PM CDT [facility] ABSOLUTE IMMATURE GRANULOCYTES(MET ,MYELOS,PROS) 0.0 <0.3 thou/cu mm 03/08/2024 10:12 PM [facility]T [facility] Blood BLOOD SPECIMEN / Unknown Venipuncture / Unknown 03/08/2024 9:40 AM CDT 03/08/2024 3:38 PM CDT Patricia DAIZ HEMATOLOGY [facility] [address] [place] [address], * TSH WITH REFLEX (03/08/2024 9:40 AM CDT) TSH 1.36 0.27 - 4.20 uIU/mL 03/09/2024 5:45 AM CDT [facility] Blood BLOOD SPECIMEN / Unknown Venipuncture / Unknown 03/08/2024 9:40 AM CDT 03/08/2024 3:38 PM CDT Narrative [facility] - 03/09/2024 5:45 AM CDT In Adults, TSH values between 5.00 and 10.00 uIU/ml do not necessarily indicate the presence of Hypothyroidism. Correlation with clinical findings such as presence of goiter and/or Thyroperoxidase (TPO) Antibody may be helpful. For more information please refer to CLAUDIA 2004; 291: 228-238. Patricia DIAZ CHEMISTRY Performing Organization Address City/[facility]/ZIP Co de Phone Number [facility] [address] [address], * (ABNORMAL) LIPID PANEL W REFLEX MEASURED LDL (03/08/2024 9:40 AM CDT) CHOLESTEROL,TOTAL 231(H) 100 - 199 mg/dL 03/09/2024 5:45 AM CDT [facility] Comment: Cholesterol, Total Reference Ranges Desirable <200 mg/dL Borderline 200-239 mg/dL High >=240 mg/dL TRIGLYCERIDES 229(H) <150 mg/dL 03/09/2024 5:45 AM CDT [facility] LAB[facility] HDL CHOLESTEROL 50 >40 mg/dL 5:45 AM CDT [facility] NON-HDL CHOLESTEROL 181(H) <145 mg/dl 03/09/2024 5:45 AM CDT [facility] CHOL/HDL RATIO 4.62(H) <4.50 03/09/2024 5:45 AM CDT [facility] LDL CHOLESTEROL 135(H) <=130 mg/dL 03/09/2024 5:45 AM CDT [facility] VLDL CHOLESTEROL 46(H) <=30 mg/dL 03/09/2024 5:45 AM CDT [facility] PROVIDER ORDERED STATUS RANDOM 03/09/2024 5:45 AM CDT [facility] Blood BLOOD SPECIMEN / Unknown Venipuncture / Unknown 03/08/2024 9:40 AM CDT 03/08/2024 3:38 PM CDT Patricia DIAZ CHEMISTRY Performing Organization Address City/[facility]/ZIP Co de Phone Number [facility] [address] [place] [address], * VITAMIN B12 (03/08/2024 9:40 AM CDT) VITAMIN B12 509 232 - 1,245 pg/mL 03/09/2024 5:45 AM CDT [facility] Blood BLOOD SPECIMEN / Unknown Venipuncture / Unknown 03/08/2024 9:40 AM CDT 03/08/2024 3:[address] [facility] - 03/09/2024 5:45 AM CDT Biotin supplements may cause clinically significant interference for this test assay. ??If interference is suspected, it is strongly recommended that biotin is discontinued for at least one week prior to retesting. Patricia DIAZ CHEMISTRY [facility] [address] [place] [address], * (ABNORMAL) COMP METABOLIC PANEL (03/08/2024 9:40 AM CDT) SODIUM 140 136 - 145 mmol/L 03/09/2024 5:45 AM T [facility] POTASSIUM 4.4 3.5 - 5.1 mmol/L 03/09/2024 5:45 AM CDT [facility] CHLORIDE 105 98 - 107 mmol/L 03/09/2024 5:45 AM T [facility] CO2,TOTAL 24 22 - 29 mmol/L 03/09/2024 5:45 AM T [facility] ANION GAP 11 5 - 18 03/09/2024 5:45 AM T [facility] GLUCOSE 101(H) 70 - 99 mg/dL 03/09/2024 5:45 AM T [facility] CALCIUM 9.3 8.8 - 10.2 mg/dL 03/09/2024 5:45 AM T [facility] BUN 15 8 - 23 mg/dL 03/09/2024 5:45 AM T [facility] CREATININE 0.91(H) 0.50 - 0.90 mg/dL 03/09/2024 5:45 AM CDT [facility] BUN/CREAT RATIO 16 10 - 20 5:45 AM CDT [facility] eGFR 71(L) >90 mL/min/1.7 3m2 03/09/2024 5:45 AM CDT [facility] Comment:As of 2021, eG FR is calculated by the CKD-EPI creatinine equation without race adjustment. ??eGFR can be influenced by muscle mass, exercise, and diet. ??The reported eGFR is an estimation only and is only applicable if the renal function is stable. ALBUMIN 4.4 4.0 - 4.9 g/dL 03/09/2024 5:45 AM CDT [facility] PROTEIN,TOTAL 7.0 6.0 - 8.0 g/dL 03/09/2024 5:45 AM CDT [facility] BILIRUBIN,TOTAL 0.4 0.0 - 1.2 mg/dL 03/09/2024 5:45 AM CDT [facility] ALK PHOSPHATASE 70 35 - 104 IU/L 03/09/2024 5:45 AM CDT [facility] ALT (SGPT) 33 10 - 35 IU/L 03/09/2024 5:45 AM CDT [facility] AST (SGOT) 27 10 - 35 IU/L 03/09/2024 5:45 AM CDT [facility] Blood BLOOD SPECIMEN / Unknown Venipuncture / Unknown 03/08/2024 9:40 AM CDT 03/08/2024 3:38 PM CDT Patricia DIAZ CHEMISTRY [facility] [address] [place] [address], from Last 3 Months Advance Directives * Full Code (Latest Code Status on File) Date Activated Date Inactivated Comments 12/08/2023 10:07 AM 12/11/2023 4:23 PM Question Answer Comments Code Status Discussion: Unable to Assess Preferences, Provider to review later Care Teams Remelt Furnace Expediter Relationship Specialty Start Date End Date Carol Clements PA [address] [place] [address] PCP - General Physician Belt Splicer 05/31/24 [place] [address] [place] [address] Dermatology 06/03/24
--- NOTE | 2024-06-08 08:15 | MR_ITS ---
[address] [address] Phone:?[phone] Fax:?[phone] Referring Physician Information: Claudio Reardon M.D. [id number] [facility] [address] Phone:?[phone] Fax:?[phone] Patient:Jamie Fernández D.O.B:?1960 Sex:?Female Phone:?[phone] [facility] MRN:?[id number] Exam Date:?06/08/2024 EXAM: MRI EXAMINATION OF THE RIGHT HIP CLINICAL INFORMATION: Right hip pain. Flexor weakness. History of surgery. Evaluate flexor muscles. TECHNICAL INFORMATION: Coronal T1 and STIR images of the bilateral hips. Oblique axial PD and axial PD fat saturation images of the right hip. Sagittal and coronal PD and T2-weighted images of the right hip. No prior studies for comparison. INTERPRETATION: Hip joint: Metal susceptibility artifact arises from a right total hip arthroplasty. No evidence for hip joint effusion. No evidence for a periprosthetic fracture. No discrete periprosthetic geographic bone lesion. No other periprosthetic bone marrow edema pattern. Intact appearance of the gluteus tendon insertions onto the greater trochanter. No evidence of fluid signal abnormality to indicate trochanteric bursitis. Intact appearance of the iliopsoas muscle and tendon insertions. No evidence for iliopsoas bursitis. No evidence for a soft tissue mass or collection about the hip. Bones and joints: Postsurgical changes involving the lumbosacral spine. No evidence for an occult fracture/stress reaction involving the sacrum. No appreciable changes of SI joint arthrosis. There are mild subchondral cystic changes involving the contralateral, left hip joint. There is no evidence for a fracture. No abnormal marrow edema pattern to indicate occult stress reaction or stress fracture. Musculotendinous structures: There is severe fatty atrophy identified involving the right tensor fascia melanie muscle belly. There are fatty atrophic changes involving the right-sided quadratus femoris muscle between the lesser trochanter and ischial tuberosity. No evidence for an acute muscle belly strain injury. No other muscle belly edema pattern. Intrapelvic contents: No free fluid seen within the pelvis. No discrete intrapelvic mass is identified. Neurovascular structures: No discrete cyst, mass or other compression upon the portions visualized of sciatic or femoral nerves. CONCLUSION: 1. Postsurgical appearance of a right total hip arthroplasty. 2. No evidence for a periprosthetic fracture. No periprosthetic signal alteration to indicate MRI appearance of loosening/osteolysis. 3. Severe fatty atrophy involves the tensor fascia melanie muscle belly. 4. Additional fatty atrophic changes of the right quadratus femoris muscle belly between the lesser trochanter and ischial tuberosity, as may be associated with ischiofemoral impingement. 5. No evidence for bursitis about the hip. No soft tissue mass or collection about the hip. KES Electronically signed on 06/08/2024 11:52:00 AM by Zain Atkinson M.D.
== END 2024-06-08 07:48 | disposition home or self-care (01) ==
LOC: MRI 07:47
PROVIDERS: PCP Physician Assistant Medical; Visit Provider Orthopaedic Surgery Sports Medicine
DX: M25.551 Pain in right hip (principal)
CPT/HCPCS: 73721

== ENCOUNTER 2024-07-05 12:02 | Outpatient (CLI) | payer BC, SELFPAY ==
--- OUTSIDE RECORDS SUMMARY | 2024-07-05 12:05 | XMS_ITS | Continuity of Care Document ---
Author Organization [facility] Address [address] [place] [address] Phone Care Team Providers Care Back Sewer Name Role Phone Grant SOLIS, Amirosie Unavailable Unavailable Allergies, Adverse Reactions, Alerts Substance Reaction Status Criticality Penicillins Rash Active No Information Medications Medication Instructions Dosage Effective Dates (start - stop) Status Comments LOSARTAN POTASSIUM (unknown strength) Not Available - Active NORCO (unknown strength) Not Available - Active LIPITOR (unknown strength) Not Available - Active OXYCODONE-ACETAMIN OPHEN (unknown strength) Not Available - No Longer Active Procedures Procedure Date Office/Outpatient Visit,Est, Mod 2023 OFFICE/OUTPATIENT VISIT EST Phone Office/Outpatient Visit,Est, Low 2023 Postop Followup Visit X-Ray Exam Lower Spine 2-3 Views 2023 Postop Followup Visit TLIF - Includes PSF at the same level Ap LINDER FACETC/FRMT ARTHRD LUM 1 Posterior Instrumentation, Non-segmental PEEK/ Cage/ Implant, For Interbody Fusio n Lami, Facetectomy/Foraminotomy, Lumbar ( Stenosis) Pre Op OFFICE/OUTPATIENT VISIT EST Phone Office/Outpatient Visit,New, Mod 2023 X-Ray Exam Lwr Spine, Min 4 Views Office/Outpatient Visit,[place] 2014 Advance Directives Directive Yes / No Effective Date File Name No Information Encounters Encounter Description Practice Location Reason(s) For Visit Diagnoses Date Provider Providers Copied on Encounter Office/Outpa tient Visit,Est, Mod [facility], [address], [place], [id number] , [place] [phone] [facility] Other intervertebral disc degeneration, lumbar region, NOSOther intervertebral disc displacement, lumbar region 4 Mehbod Amir. [facility], [address], [facility] [place], [id number] , [place]. [phone] Referring Provider: Chris Ann, [facility] Nayely Browning , [place], [address]. tel:[phone] OFFICE/OUTPA TIENT VISIT EST Phone [facility], [address], [facility] [place], [id number] , [place] tel: [phone] [facility] No Information 4 Dede Borden. [address] [place] [address] [address], [facility] [place], [id number] , [place]. [phone] Referring Provider: [facility] Nayely [address]ning , [place], [address]. tel:[phone] Office/Outpa tient Visit,Est, Low [facility], [address], [facility] [place], [id number] , [place] [phone] [facility] Post Op - Normal Follow-up 4 Mehbod Amir. [facility], [address], [facility] [place], [id number] , [place]. [phone] Referring Provider: Chris Ann [facility] [place], [address]. tel:[phone] [facility], [address], [facility] [place], [id number] , [place] tel:[phone] [facility] Encounter for other specified surgical aftercare 4 Dede Borden. [address], [place], [id number] , [place]. tel:[phone] Referring Provider: Chris Ann, Rev[facility] Nayely [facility], [place], [address]. tel:[phone] [facility], [address], [place], [place], [id number] , [place] tel: [phone] [facility] Encounter for other specified surgical aftercare 4 Mehbod Amir. [facility], [address], [facility] [place], [id number] , [place]. tel: [phone] Referring Provider: Chris Ann, Rev[facility] Nayely [facility], [place], [address]. tel:[phone] [facility], [address], [facility] [place], [id number] , [place] tel: [phone] [facility] No Information [address] [facility], [address], [facility] [place], [id number] , [place]. tel:[phone] Referring Provider: Chris Ann, [employer] Nayely [facility], [place], [address]. tel:[phone] Pre Op OFFICE/OUTPA TIENT VISIT EST Phone [facility], [address], [facility], [id number] , [place] tel: [phone] [facility] No Information 4 Vivekmelodie Borden. [address] [place] [address] [address], [place], [place], [id number] , [place]. tel:[phone] Referring Provider: Chris Ann, Revolymer [address] [place] [address], [place], [address]. tel:[phone] Office/Outpa tient Visit,New, Mod [facility], [address], [facility], [id number] , [place] tel: [phone] [facility] [place] Spondylolisthesis , lumbar regionSpinal stenosis, lumbosacral regionOther intervertebral disc displacement, lumbar region 4 Mehbod Amir. [facility], [address] [place] [address] [address], [place], [place], [id number] , . tel: [phone] Referring Provider: [facility]ments [facility], [place], [address]. tel:[phone] Office/Outpa tient Visit,[facility], [facility], [facility], [address], [place], [place], [id number] , [place] tel: [phone] [facility] [place] OVERWEIGHTHyperte nsion, UnspecifiedCervic algiaCervical sprain 5 Mehbod Amir. [facility], [address] [place] [address] [address], [place], [place], [id number] , . tel: [phone] Referring Provider: Carol Clements [facility] Nayely [facility], [place], [address]. tel:[phone] Family History Family Member Type Diagnosis Age At Onset Father Problem (finding) Cardiovascular disease Mother Problem (finding) Osteoarthritis Father Problem (finding) Hypertension Mother Problem (finding) Stroke Payers Payer name Insurance type Covered democrat ID Authorojsea jr(s) BCBS [id number] [facility] [id number] Social History Type Description Quantity Date Captured Comments Alcohol Use Details Unknown Caffeine Use Details Unknown Tobacco Use Status Never smoked tobacco 2023 Smoking Status Never smoker Non-Smoking Tobacco Use Details : No Details Available : No Details Available Sex Female Vital Signs Date / Time: Height Weight BMI Pulse Rate Blood Pressure Temperature Respiratory Rate Body Surface Area Head Circumference Head Circ. Percentile Wt./Misha. Percentile BMI percentile Pulse Ox Inhaled Ox 10:21 AM 63.00 in 77.111 kg (170.00 lbs) 30.1 1 kg/m eter (2) Chief Complaint And Reason For Visit No Information Reason For Referral Reason For Referral No Information Plan Of Treatment Date Type Action Status Future Order: Radiology Order AP -Sxa-Npuo-Yqn Lum ([id number]), Ordered on: Ordered History Of Present Illness Encounter Date Complaint History Of Prese nt Illness No Information Functional Status Date Functional Assessmen t No Information Instructions Date Instruction Additional Infor daisy Weight Management Related to Ove tez Exercise education Related to Un specified Essential Hypertension Assessments Type Assessment Date No Information Patient Care Teams Name Effective Dates (start - stop) Status Members No Information
--- OUTSIDE RECORDS SUMMARY | 2024-07-05 12:05 | XMS_ITS | Data Portability ---
Author Organization [facility] - [facility] Address [address] [facility] [place] [address] [place] [address] Care Team Providers Care Electric Meter Installer Name Role Phone [facility] Referring Provider ELLE CORREA Referring Provider [facility] Physical Therapist Assessment Encounter Date Assessment Date [...] contact patient to schedule visit 2022 023 [facility] [place], [address], [place], [address], 16:58:01 Procedures None recorded. Surgeries None recorded. Imaging CT, temporal bone, w/o contrast 2022 023 [email or web address] [facility], [address] [facility], [place], [address], 16:55:48 Medication Orders None recorded. Patient TargetsNo targets recorded. Patient Instructions Encounter Date Encounter Id Patient Instructions Last Modified By Organization Details Last Modified Time 07/21/2023 [id number] Self Care for TMD Not avai lable [...] stabil izatio n applia nce Not Available [facility] [address], [place], [address], 07/20/2023 16:28:33 07/21/20 CT, tempo ral bone, w/o contr ast No observ ation record ed. [facility] [address], [place], [address], 07/21/2023 16:30:14 Result Notes None recorded. 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 Procedures Surgical History Date Name Laterality Status Provider Name and Address Organization Details Recorded Time 7 Joint Replacement completed [facility] 07/21/2023 14:29:57 3 Wedding Planning Internship Surgery completed [facility] 07/21/2023 14:29:57 4 Tubal Ligation completed [facility] 07/21/2023 14:29:57 Wedding Planning Internship Surgery completed [facility] 07/21/2023 14:29:57 Bowlus Teeth Extraction completed [facility] 07/21/2023 14:29:57 Imaging Results Imaging Date Name Status LastModified by Organiz ation Details LastModified Time 07/21/2023 CT, temporal bone, w/o contrast completed [email or web address] [facility] [address], [place], [address], 07/21/2023 16:30:14 Procedure Notes None recorded. Medical Equipment None Reported. Allergies Allergen ID Allergen Name Allergen Category Reaction Reaction Severity Criticality Documentation Date Start Date Code Code System Note Provider Name and Address Organization Details Recorded Time 32795 Penicilli n Not available hives severe Not available 07/21/20231971 33445 RxNorm Clair [facility] 14:29:31 Medications [...] /min 153 mm[Hg] 94 mm[Hg] Susan Orosco [facility] 07/21/2023 14:37:05 Social History Question Answer Notes LastModified by Organizat ion Details LastModified Time Tobacco Smoking Status Never Smoker Clair [facility] 07/21/2023 14:29:54 What Is Your Level Of Alcohol Consumption? Occasional [email or web address] Information not available 07/21/2023 What Is Your Level Of Caffeine Consumption? Occasional [email or web address] Information not available 07/21/2023 Are You Currently Employed? Yes [email or web address] Information not available 07/21/2023 What Type Of Diet Are You Following? REGULAR [email or web address] Information not available 07/21/2023 Do You Reside In Or Have You Traveled To An Area Where Ebola Virus Transmission Is Active? No [email or web address] Information not available 07/21/2023 What Is The Highest Grade Or Level Of School You Have Completed Or The Highest Degree You Have Received? 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 (0=no Pain, 10=pain As Bad As You Can Imagine) 4 [email or web address] Information not available 07/21/2023 What Number Best Describes How, During The Past Week, Pain Has Interfered With Your Enjoyment Of Life? (0=does Not Interfere, 10= Completely Interferes) 2 [email or web address] Information not available 07/21/2023 What Number Best Describes How, During The Past Week, Pain Has Interfered With Your General Activity? (0=does Not Interfere, 10=completely Interferes) 2 [email or web address] Information not available 07/21/2023 How Did Primary Problem Begin? Don't Remember, Got Much Worse After Dentist Visit [email or web address] Information not available 07/21/2023 How Many Children Do You Have? 4 [email or web address] Information not available 07/21/2023 What Is Your Relationship Status? Information not available 07/21/2023 Do You Feel Stressed (tense, Restless, Nervous, Or Anxious, Or Unable To Sleep At Night)? NS12438-3 [email or web address] Information not available 07/21/2023 Do You Use Any Illicit Or Recreational Drugs? No [email or web address] Information not available 07/21/2023 How Many Years Have You Smoked Tobacco? 0 [email or web address] Information not available 07/21/2023 Sex: Unknown Functional Status Question Answer Note LastModified by Organizat ion Details LastModified Time What is your exercise level? Occasional [email or web address] Information not available 07/21/2023 Mental Status None recorded. Family History Relationship Description Onset Age of this Age Resolved Age Notes LastModified by Organization Details LastModified Time Father Arthritis [email or web address] Not avail able 07/21/2023 14:29:36 Father Rheumatoid arthritis [email or web address] Not available 07/08 14:29:36 Medical History Condition Response Muscle, Joint, or Bone Problems Y Arthritis Y High Cholesterol Y Hypertension Y Gynecological HistoryNo gynecological history recorded. 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 0756947523 0432416 M26.632 Sleep related bruxism 27 5076096 G47.63 Health Concerns Section Related Observation LastModified by Organization Detai ls LastModified Time None Recorded Concern Status LastModified by Organization Details LastModified Time None Recorded Advance Directives Directive None Recorded Payers Encounter Date Sequence Insurance Name Policy Number Policy Harden Covered Member ID Harden Member ID Guarantor Name 07/21/2023 1 [employer] [id number] Eda Fernández [id number] Eda Fernández Notes Date Note Type Note [...] 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 TERESE PELAEZ DDS,MS [address] [facility] [address], [place], [address], [facility] 07/21/2023 16:55:52 OBGyn Episode No OBEpisode recorded.
--- OUTSIDE RECORDS SUMMARY | 2024-07-05 12:05 | XMS_ITS | Referral Summary ---
Author Organization [facility] Address [address] [place] [address]. [place] [address] Care Team Providers Care Short Piece Handler Name Role Phone Toshiajeannine Carol Ann Primary Care Provider Allergies Active Allergy Reactions Criticality Noted Date Comments Penicillins Hives 04/15/2022 Medications No known medications Active Problems No known active problems Social History Tobacco Use Types Packs/Day Years Used Date Smoking Tobacco: Never Assessed Adolescent Education Answer Date Record ed Getting School Help Needed Not on file 06/21 Comments Unknown Sex and Gender Information Value Date Recorded Sex Assigned at Not on file Legal Sex Female 3:18 AM INDUSTRIAL 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 COUNSELOR Gender Identity Not on file Sexual Orientation [...] (ABNORMAL) Comprehensive metabolic panel (04/15/2022 2:26 PM [facility]) Sodium 141 136 - 145 mmol/L 04/15/2022 3:05 PM [facility] Potassium 3.3(L) 3.5 - 5.0 mmol/L 04/15/2022 3:05 PM [facility] Chloride 103 98 - 107 mmol/L 04/15/2022 3:05 PM [facility] Carbon Dioxide (CO2) 30 22 - 31 mmol/L 04/15/2022 3:05 PM [facility] Anion Gap 8 5 - 18 mmol/L 04/15/2022 3:05 PM [facility] Urea Nitrogen 22 8 - 22 mg/dL 04/15/2022 3:05 PM [facility] Creatinine 1.02 0.60 - 1.10 mg/dL 04/15/2022 3:05 PM [facility] Calcium 9.6 8.5 - 10.5 mg/dL 04/15/2022 3:05 PM [facility] Glucose 112 70 - 125 mg/dL 04/15/2022 3:05 PM [facility] Alkaline Phosphatase 61 45 - 120 U/L 04/15/2022 3:05 PM [facility] AST 23 0 - 40 U/L 04/15/2022 3:05 PM [facility] ALT 24 0 - 45 U/L 04/15/2022 3:05 PM [facility] Protein Total 7.5 6.0 - 8.0 g/dL 04/15/2022 3:05 PM [facility] Albumin 3.8 3.5 - 5.0 g/dL 04/15/2022 3:05 PM [facility] Bilirubin Total 0.5 0.0 - 1.0 mg/dL 04/15/2022 3:05 PM [facility] GFR Estimate 62 >60 mL/min/1.7 3m2 04/15/2022 3:05 PM [facility] Comment:Effective August 082020 eGFRcr in adults is calculated using the 2020 CKD-EPI creatinine equation which includes age and gender (Bonnie et al., NEJM, DOI: 10.1056/WXJOtk8392980) Blood VENOUS LINE / Unknown Venipuncture / Unknown 04/15/2022 2:26 PM CDT 04/15/2022 2:31 PM CDT Kain Olsen MD LAB - BLOOD ORDERABLES Final R esult [facility] [address] [place] [address] [phone] from Last 3 Months or Most Recently Relevant to Health Maintenance [place] [facility] [place] Care Teams Short Piece Handler Relationship Specialty Start Date End Date Carol Clements [address] [place] [address] PCP - General Physician Regional Office Coordinator 04/15/22
--- OUTSIDE RECORDS SUMMARY | 2024-07-05 12:05 | XMS_ITS | Clinical Summary ---
Author Organization [facility] Address [place], [place] [address] Care Team Providers Care Whipped Topping Finisher Name Role Phone Carol Clements Primary Care Provider Romi Caputo Unavailable [phone] Kailyn White Unavailable Allergies Active Allergy Reactions Criticality Noted Date Comments Penicillins Hives High 03/07/1972 Medications Medication Sig Dispensed Refills Start Date End Date Status nitroglycerin (NITROSTAT) 0.4 mg sublingual tabletIndications: Chest pain in adult Place 1 tablet under the tongue every 5 minutes if needed for Chest Pain. 30 tablet 02/10/20 19 Active levalbuterol (XOPENEX HFA) 45 mcg/actuation inhalerIndications :Acute bronchitis, unspecified organism Inhale 1-2 Puffs by mouth every 4 hours if needed for Shortness Of Breath or Wheezing. 15 g 06/24/20 23 Active acetaminophen (TYLENOL EXTRA STRGTH) 500 mg tabletIndications: Displacement of lumbar intervertebral disc without myelopathy Take 2 Tablets (1,000 mg) by mouth every 6 hours. Max acetaminophen dose: 4000mg in 24 hrs. 90 Tablet 12/11/19 24 Active methocarbamoL (ROBAXIN) 750 mg tabletIndications: DDD (degenerative disc disease), cervical Take 1 Tablet (750 mg) by mouth every 6 hours if needed for Muscle Spasm. 30 Tablet 12/11/19 24 Active losartan (COZAAR) 100 mg tabletIndications: HTN (hypertension) Take 0.5 Tablets (50 mg) by mouth once daily. Do not take if systolic blood pressure (top number) is less than 120. 12/11/19 24 Active cholecalciferol, Vitamin D3, (Vitamin D-3) 5,000 unit tab tablet Take 1 Tablet (5,000 units) by mouth once daily. 12/14/19 24 Active gabapentin (NEURONTIN) 600 mg tabletIndications: Lumbar radiculopathy Take 1 Tablet (600 mg) by mouth three times daily. 90 Tablet 5 03/03/20 24 Active polyethylene glycol-electrolyte (GOLYTELY) 236-22.74-6.74 -5.86 gram suspensionIndicati ons:Encounter for screening colonoscopy Drink 2 liters (half the bottle) the day before colonoscopy and 2 liters (remaining prep) 6 hours prior to colonoscopy appointment. 4000 mL 05/06/20 24 Active fluticasone (50 mcg per actuation) nasal solution (FLONASE)Indicatio ns:Acute non-recurrent pansinusitis Inhale 2 Sprays to both nostrils once daily. 16 g 05/25/20 24 Active hydroquinone 4 % creamIndications:S olar elastosis Apply topically to affected area(s) two times daily. 46 g 2 05/31/20 24 Active phentermine (ADIPEX-P) 37.5 mg tabletIndications: Obesity (BMI 30.0-34.9) Take 1 Tablet (37.5 mg) by mouth once daily before a meal. 30 Tablet 06/01/20 24 Active HYDROcodone-acetam inophen (5-325 mg/tablet)Indicati ons:Lumbar radiculopathy Take 1 Tablet by mouth 3 times daily if needed for Pain. Max acetaminophen dose: 4000 mg in 24 hrs. 60 Tablet 06/03/20 24 Active rosuvastatin (CRESTOR) 40 mg tabletIndications: Dyslipidemia TAKE ONE TABLET BY MOUTH EVERY NIGHT AT BEDTIME 90 Tablet 06/20/20 24 Active clindamycin (CLEOCIN) 300 mg capsuleIndications :Prophylactic antibiotic Take 1 Capsule (300 mg) by mouth four times daily for 7 days. Take 2 capsules (600 mg) 1 hour prior to your scheduled procedure. 28 Capsule 06/29/20 24 024 Active azithromycin (ZITHROMAX) 500 mg tabletIndications: Streptococcal infection Take 1 Tablet (500 mg) by mouth every 24 hours for 3 days. 3 Tablet 07/04/20 24 024 Active rosuvastatin (CRESTOR) 40 mg tabletIndications: Dyslipidemia Take 1 Tablet (40 mg) by mouth at bedtime. 90 Tablet 03/09/20 024 Discontinued tirzepatide, weight loss, (Zepbound) 2.5 mg/0.5 mL penIndications:Obe sity (BMI 30.0-34.9) Inject 2.5 mg subcutaneous once weekly. 6 mL 04/06/20 24 024 Discontinued(*A vailability/For mulary change/Cost of medication) predniSONE (DELTASONE) 10 mg tabletIndications: Lumbar radiculopathy,Cerv ical radiculopathy Take 2 Tablets (20 mg) by mouth two times daily with meals for 3 days, THEN 1 Tablet (10 mg) three times daily with meals for 3 days, THEN 2 Tablets (20 mg) once daily with a meal for 3 days, THEN 1 Tablet (10 mg) once daily with a meal for 3 days. 30 Tablet 06/03/20 24 024 clindamycin (CLEOCIN) 300 mg capsuleIndications :PROPHYLAXIS Take 2 Capsules (600 mg) by mouth one time for 1 dose. Take on morning of procedure 2 Capsule 06/06/20 24 024 Active Problems Problem Noted Date Diagnosed Date Melanoma 06/03/2024 Overview (06/23/2024): 05/31/24: left distal lower leg, MIS, excised 06/15/2024 Primary hypertension 12/08/2023 Myofascial pain 07/20/2023 Overview [...] Encounters Date Type Department Care Team Description 07/05/2024 Patient Outreach [facility] Care Management - Advanced Care Team [address] [place] [address] ChristopherKailyn Chelsea Complex Care Management (CCM engagement outreach due to Payer Referral/BCBS/) 07/01/2024 [facility] [address] [place] [address] Staff, Raudel Bariatric WEIGHT MANAGEMENT 07/01/2024 Patient Outreach [facility] Management - Care Management Navigation/[facility] [address] [place] [address] Lizbeth Singleton Care Management Intake (Identification Date) 06/30/2024 Telephone [facility] [address] [address] Jud Shrestha MD Medication Management 06/29/2024 1:00 PM CDT Nurse/Clinic Staff Only [facility] [address] [address] Suture Removal 06/29/2024 10:30 AM CDT Office Visit [facility] [address] [place] [address] Carol Clements PA Medication Management (phentermine) 06/29/2024 Travel 06/24/2024 Travel 06/22/2024 Telephone [facility] [address] [place] [address] Chris Eason MD Form (Social Security Disability form received via Mail) 06/21/2024 8:30 AM CDT Orders Only [facility] [address] [place] [address] Lab, [facility] 06/20/2024 Travel 06/18/2024 Refill [facility] [address] [place] [address] Patricia Diaz PA Refill Request (Rosuvastatin) 06/16/2024 Telephone [facility] [address] [place] [address] Chris Eason MD Results (MRI) 06/15/2024 9:30 AM CDT Procedure Only [facility] [address] [facility] [address] [place] [address] Jud Shrestha MD Derm Problem 06/15/2024 Travel 06/13/2024 11:15 AM CDT Ancillary Procedure [facility] [address] [facility] [address] [place] [address] 06/13/2024 9:20 AM CDT Orders Only [facility] [address] [facility] [address] [place] [address] Lab 06/13/2024 Travel 06/10/2024 9:45 AM CDT Ancillary Procedure [facility] [address] [address] 06/10/2024 Orders Only [facility] [address] [place] [address] Caorl Clements PA <No scans attached> 06/10/2024 Travel 06/09/2024 Medical Messaging [facility] [address] [place] [address] Carol Clements PA Colonoscopy order 06/09/2024 Travel 06/08/2024 Orders Only [facility] Scanner 1 scan: (1-Ord) [facility], EXAMINATION OF THE RT HIP , 06/08/2024 06/06/2024 Orders Only [facility] [address] [address] Jud Shrestha MD <No scans attached> 06/05/2024 Travel 06/03/2024 10:20 AM CDT Office Visit [facility] [address] [place] [address] Chris Eason MD Musculoskeletal Problem (Consult bilateral hand numbness/Consult right hip pain) 06/03/2024 Telephone [facility] [address] [address] Romi Caputo PA Results 06/03/2024 Travel 06/01/2024 2:40 PM CDT Office Visit [facility] [address] [place] [address] Carol Clements PA Weight (Discuss weight loss options); Dizziness (Lightheaded ) 06/01/2024 10:00 AM CDT Office Visit [facility] [address] [place] [address] Ann Rodriguez, OSORIO Eye Exam (CEE) 05/31/2024 11:10 AM CDT Office Visit [facility] [address] [facility] [address] [place] [address] Romi Caputo PA Derm Problem 05/31/2024 Travel 05/22/2024 Refill [facility] [address] [place] [address] Carol Clements PA Refill Request (Fluticasone (50 Mcg Per Actuation) Nasal) 05/12/2024 1:15 PM CDT Ancillary Procedure [facility] [address] [facility] [address] [place] [address] 05/12/2024 12:10 PM CDT Office Visit [facility] [address] [place] [address] Patricia Diaz PA Weight (Zepbound denied); Numbness (Bilat hands); Dizziness (Light headed) 05/12/2024 Travel 05/12/2024 Telephone [facility] [address] [place] [address] Jose Levine MD Appointment Reminder (Colonoscopy) 05/06/2024 Telephone [facility] [address] [place] [address] Jose Levine MD Screening 04/29/2024 Transcribe Orders [facility] [address] [place] [address] Michi Aguayo PA 04/12/2024 Telephone [facility] [address] [place] [address] Patricia Diaz PA Prior Authorization (tirzepatide, weight loss, (Zepbound) 2.5 mg/0.5 mL pen (PA EXCLUDED MEDICATION)) 04/06/2024 1:40 PM CDT Ancillary Procedure [facility] [address] [place] [address] 04/06/2024 10:10 AM CDT Office Visit [facility] [address] [place] [address] Patricia Diaz PA Weight (wants to discuss weight loss options) 04/06/2024 Travel from Last 3 Months Immunizations Name Administration Dates Next Due COVID-19 vaccine (NovaSparks 30mcg/0.3mL) P F, MDV 01/28/2021,01/07/2021 Influenza, IIV3 (Age >=3 years) 09/17/2012 [...] 0 04/06/2024 Social Connections Answer Date Recorded Do you often feel lonely or isolated from those around you? 0 05/31/2024 Financial Resource Strain Answer Date R ecorded Difficulty of Paying Living Expenses 2 06/01/2024 Difficulty of Paying Living Expenses 1 06/01/2024 Food Insecurity Answer Date Recorded Do you worry your food will run out before you are able to buy more? 1 05/31/2024 Transportation Needs Answer Date Record ed Does lack of transportation keep you from medica l appointments? 1 05/31/2024 Does lack of transportation keep you from work, meetings or getting things that you need? 1 05/31/2024 Housing Stability Answer Date Recorded What is your housing situation today? 1 05/31/2024 Sex and Gender Information Value Date Recorded Sex Assigned at Not on file Gender Identity Not on file Sexual Orientation Not on file Obstetrics History Last Filed Vital Signs Vital Sign Reading Time Taken Comments Blood Pressure 137/87 06/29/2024 10:45 AM CDT Pulse 99 06/29/2024 10:45 AM CDT Temperature 36.7 ??C (98 ??F) 06/03/2024 10:34 AM CDT Respiratory Rate 20 01/05/2024 4:23 PM CDT Oxygen Saturation 99% 06/03/2024 10:34 AM CDT Inhaled Oxygen Concentration - - Weight 77.3 kg (170 lb 8 oz) 06/29/2024 10:45 AM CDT Height 159 cm (5' 2.6) 06/29/2024 10:45 AM CDT Body Mass Index 30.59 06/29/2024 10:45 AM CDT Plan of Treatment Upcoming Encounters Date Type Department Care Team (Late st Contact Info) Description 07/15/2024 9:15 AM CONSERVATION OF RESOURCES COMMISSIONER Appointment [facility]EP [address] [place] [address] Jose J Murguia MD [address] [place] [address] 08/10/2024 9:40 AM CON[employer] OF RES[employer] COMMISSIONER Office Visit [facility] [address] [place] [address] Chris Eason MD [address] [place] [address] 08/29/2024 9:50 AM CON[employer] OF RES[employer] COMMISSIONER Office Visit [facility] [address] [facility] [place] [address] [place] [address] Romi Caputo, EMILY [address] [place] [address] [place] [address] Health Maintenance Due Date Last Done Comments [...] 50-64 05/08/2024 08/27/20 16, 09/17/2012, 09/16/2011 (Declined) Depression screening for age 12+ 04/06/2025 04/06/2024, 07/15/2017, 10/31/2015 Mammogram for age 45-75 04/06/2025 04/06/20 24, 05/20/2021, 10/04/2015, Additional history exists BMI (ht and wt on same day) for age 18+ 06/29/2025 06/29/2024, 04/06/2024, 06/30/2023, Additional history exists Tetanus booster 08/27/2026 08/27/2016, 04/07 (Declined) Lipids for age 45-75 03/08/2029 03/08/2024, 04/22/2023, 11/26/2022, Additional history exists Tdap Completed 08/27/2016 Medical Devices Implanted Type Area Hand Sander Device Identifier Shelf Expiration Date Model / Serial / Lot [id number] Matrix 3cc Rosanky Dbf Putty Dbm Implanted:Qty: 1 on 12/08/2023 by Natalie Burns MD at [facility] Spine [employer] Spine/Ortho 11/01/2025 [id number] / [id number] / Bone 1-4mm 30cc Medtronic Chips Canclls Freeze Dried - [id number] Implanted:Qty: 1 on 12/08/2023 by Natalie Burns MD at [facility] Sp[facility] [employer] Spine[employer]Orth[employer] 11/05/2027 [id number] / [id number] / Spacer Lmbr 9x22mm Capstone Tlif Peek - [id number] Implanted:Qty: 1 on 12/08/2023 by Natalie Burns MD at [facility] Sp[facility] [employer] Spine/Ortho 09/21/2026 [id number] / / [id number] Set Screw Lmbr Ant 5.5mm Solera Break Off - [id number] Implanted:Qty: 4 on 12/08/2023 by Natalie Burns MD at [facility] Sp[facility] [employer] Spine/Ortho [id number] / / Markell Lmbr 35x5.5mm Solera 5.5/6 Cvd Titnm - [id number] Implanted:Qty: 2 on 12/08/2023 by Natalie Burns MD at [facility] Sp[facility] [employer] Spine/Ortho [id number] / / Screw Lmbr Post 6.5x40mm Solera 5.5/6 Va Cocr - [id number] Implanted:Qty: 1 on 12/08/2023 by Natalie Burns MD at [facility] Sp[facility] [employer] Spine/Ortho [id number] / / Screw Lmbr Post 6.5x45mm Solera 5.5/6 Va Cocr - [id number] Implanted:Qty: 3 on 12/08/2023 by Natalie Burns MD at [facility] Sp[facility] [employer] Spine/Ortho [id number] / / Procedures Procedure Name Priority Date/Time Associated Diagnosis Comments TSH WITH REFLEX Routine 06/21/2024 8:35 AM CDT Dizziness Light headed COMP METABOLIC PANEL Routine 06/21/2024 8:35 AM CDT Dizziness Light headed CBC WITH AUTO DIFFERENTIAL Routine 06/21/2024 8:35 AM CDT Dizziness Light headed PATH TISSUE EXAM Routine 06/15/2024 9:30 AM CDT Melanoma in situ, unspecified site (HC) MR SPINE CERVICAL WO Routine 06/13/2024 11:32 AM CDT Bulging of cervical intervertebral disc Cervical radiculopathy Bilateral hand numbness CBC WITH AUTO DIFFERENTIAL Routine 06/13/2024 9:39 AM CDT TSH WITH REFLEX Routine 06/13/2024 9:37 AM CDT Dizziness Light headed COMP METABOLIC PANEL Routine 06/13/2024 9:37 AM CDT Dizziness Light headed US CAROTID DUPLEX BILATERAL Routine 06/10/2024 10:37 AM CDT Dizziness Light headed SCAN-MRI INTERPRETATION 06/08/2024 12:00 AM CDT PATH TISSUE EXAM Routine 05/31/2024 11:3 0 AM CDT Neoplasm of uncertain behavior of skin MR SPINE LUMBAR WO Routine 05/12/2024 1: 21 PM CDT Spinal stenosis, lumbar region, without neurogenic claudication XR MAMMO BILAT SCREENING Routine 04/06/2024 1:56 PM CDT Visit for screening mammogram LIPID PANEL W REFLEX MEASURED LDL Routine 03/08/2024 9:40 AM CDT Dyslipidemia from Last 3 Months or Most Recently Relevant to Health Maintenance Results * TSH WITH REFLEX (06/21/2024 8:35 AM CDT) Only the most recent of2 resultswithin the time period is included. TSH W/REFLEX TO FT4 0.81 0.40 - 4.50 mIU/L [facility] Blood BLOOD SPECIMEN / Unknown 06/21/2024 8:35 AM CDT 06/21/2024 8:35 AM CDT Carol DIAZ CHEMISTRY [facility] [address] [place] [address], [place] [phone] [facility] [address] [place] [address] * CBC AND DIFFERENTIAL (06/21/2024 8:35 AM CDT) [facility] WHITE BLOOD CELL COUNT 8.4 3.8 - 10.8 Thousand/u L [facility] RED BLOOD CELL COUNT 4.38 3.80 - 5.10 Million/uL [facility] HEMOGLOBIN 12.7 11.7 - 15.5 g/dL [facility] HEMATOCRIT 39.2 35.0 - 45.0 % [facility] MCV 89.5 80.0 - 100.0 fL [facility] MCH 29.0 27.0 - 33.0 pg [facility] MCHC 32.4 32.0 - 36.0 g/dL [facility] Comment: For adults, a slight decrease in the calculated MCHC value (in the range of 30 to 32 g/dL) is most likely not clinically significant; however, it should be interpreted with caution in correlation with other red cell parameters and the patient's clinical condition. RDW 12.7 11.0 - 15.0 % [facility] PLATELET COUNT 275 140 - 400 Thousand/u L [facility] MPV 10.0 7.5 - 12.5 fL [facility] ABSOLUTE NEUTROPHILS 4,906 1,500 - 7,800 cells/uL [facility] ABSOLUTE LYMPHOCYTES 2,310 850 - 3,900 cells/uL [facility] ABSOLUTE MONOCYTES 714 200 - 950 cells/uL [facility] ABSOLUTE EOSINOPHILS 420 15 - 500 cells/uL [facility] ABSOLUTE BASOPHILS 50 0 - 200 cells/uL [facility] NEUTROPHILS 58.4 % [facility] LYMPHOCYTES 27.5 % [facility] MONOCYTES 8.5 % [facility] EOSINOPHILS 5.0 % [facility] BASOPHILS 0.6 % [facility] Blood BLOOD SPECIMEN / Unknown 06/21/2024 8:35 AM CDT 06/21/2024 8:35 AM CDT Carol DIAZ HEMATOLOGY [facility] [place] [address], [facility] [address] [place] [address] * (ABNORMAL) COMP METABOLIC PANEL (06/21/2024 8:35 AM CDT) Only the most recent of2 resultswithin the time period is included. [facility] Signature GLUCOSE 105(H) 65 - 99 mg/dL [email or web address] Comment: ? Fasting reference interval For someone without known diabetes, a glucose value between 100 and 125 mg/dL is consistent with prediabetes and should be confirmed with a follow-up test. UREA NITROGEN (BUN) 23 7 - 25 mg/dL [email or web address] CREATININE 0.94 0.50 - 1.05 mg/dL [email or web address] EGFR 68 > OR = 60 mL/min/1. 73m2 [facility] BUN/CREATININE RATIO SEE NOTE: (calc) [facility] Comment: ?? Not Reported: BUN and Creatinine are within ?? reference range. ? SODIUM 141 135 - 146 mmol/L [facility] POTASSIUM 4.4 3.5 - 5.3 mmol/L [facility] CHLORIDE 104 98 - 110 mmol/L [facility] CARBON DIOXIDE 28 20 - 32 mmol/L [facility] CALCIUM 9.2 8.6 - 10.4 mg/dL [facility] PROTEIN, TOTAL 6.9 6.1 - 8.1 g/dL [facility] ALBUMIN 4.0 3.6 - 5.1 g/dL [facility] GLOBULIN 2.9 1.9 - 3.7 g/dL (calc) [facility] ALBUMIN/GLOBULIN RATIO 1.4 1.0 - 2.5 (calc) [facility] BILIRUBIN, TOTAL 0.7 0.2 - 1.2 mg/dL [facility] ALKALINE PHOSPHATASE 49 37 - 153 U/L [facility] AST 21 10 - 35 U/L [facility] ALT 35(H) 6 - 29 U/L [facility] Blood BLOOD SPECIMEN / Unknown 06/21/2024 8:35 AM CDT 06/21/2024 8:35 AM CDT Carol DIAZ CHEMISTRY [facility] [address] [place] [address], [facility] [address] [place] [address] * PATH TISSUE EXAM (06/15/2024 9:30 AM CDT) Only the most recent of2 resultswithin the time period is included. Case Report Pathology Report ?Case: [id number] ? Authorizing Provider: ??Jud Shrestha MD ?? Collected: ? 06/15/2024 0930 ? Ordering Location: ? [facility] ?Received: ?06/15/2024 1525 ? Specialty Clinic ? Pathologist: ? Adithya Paredes MD ? Specimen: ?Skin, Left distal lower leg ? 06/17/2024 4:25 PM T [facility] [employer] [facility] Final Diagnosis A) SKIN, LEFT DISTAL LOWER LEG, RE-EXCISION: 1. Biopsy site change consistent with prior procedure 2. No residual melanoma in situ identified 06/17/2024 4:25 PM T [facility] Clinical Information excision and reconstruction on the melanoma in situ Case: [id number] 06/17/2024 4:25 PM T [facility] [employer] [facility] Gross Description A) Received in formalin, labeled with the patient's name and left distal lower leg, is a 3.4 x 1.6 x 0.7 cm un-oriented skin ellipse. There is a 0.8 x 0.8 cm ulcerative lesion, 0.3 cm from the nearest peripheral skin edge. The specimen is inked red, is serially sectioned and entirely submitted: 1. ??Tips 2-4. ??Remaining cross-sections ?3. ??Entire lesion spanning 0.8 cm in greatest dimension TRS 06/16/2024 06/17/2024 4:25 PM T [facility] Microscopic Description The final diagnosis is based on microscopic examination of appropriate sections of all specimens. A) Sections reveal skin with central biopsy site change. No residual melanoma in situ is identified. The presence of red ink is confirmed on tissue sections. 06/17/2024 4:25 PM T [facility] Additional Information Interpreted at [facility] - [address], [place] [address] 06/17/2024 4:25 PM CDT [facility] [employer] Other SPECIMEN FROM SKIN / Unknown Non-Blood / Unknown 06/15/2024 9:30 AM CDT 06/15/2024 3:25 PM CDT Jud Shrestha MD PATHOLOGY/CYTOLOG Y [facility] [address] [place] [address], * MR SPINE CERVICAL WO (06/13/2024 11:32 AM CDT) Anatomical Region Laterality Modality Spine, CERVICAL SPINE Magnetic R esonance 06/13/2024 10:0 6 PM CDT Impressions 06/13/2024 10:06 PM CDT 1. Stable straightening of the normal cervical lordosis. Otherwise normal alignment. No fractures 2. Normal cord signal. 3. At C3-4, moderate right and [id number] left neural foraminal narrowing. Potential impingement of left C4 nerve root. 4. At C4-5, moderate to severe narrowing of the right neuroforamen. Potential impingement of the right C5 nerve root. 5. At C5-6, moderate to severe narrowing of the left neural foramen. Potential impingement of the left C6 nerve root. Dictated by Jaylen Garcia MD @ 06/13/2024 10:06:27 PM (Electronically Signed) Narrative 06/13/2024 10:06 PM CDT For Patients: ??As a result of the Century Cures Act, medical imaging exams and procedure reports are released immediately into your electronic medical record. ??You may view this report before your referring provider. ??If you have questions, please contact your health care provider. INDICATION: Radiculopathy. Hand numbness. Comparison 08/25/2022. Technique: Sagittal T1, T2, and STIR sequences. Axial T2/gradient sequences. FINDINGS: Stable straightening of the normal cervical lordosis which may be secondary to most spasm or patient positioning. Otherwise, normal vertebral body and facet alignment. No fractures. No vertebral body loss of height. No evidence injury. No suspicious osseous lesions. Normal cord signal. No intradural mass or lesion. C1-2: No spinal canal narrowing. C2-3: No narrowing of the spinal canal. No neural foraminal narrowing. C3-4: Mild disc degeneration. Posterior disc bulge. No narrowing of spinal canal. Moderate right and moderate severe left neural foraminal narrowing. Potential impingement of the left C4 nerve root. C4-5: Disc degeneration. No narrowing of the spinal canal. Moderate severe narrowing of the right neural foramen. No narrowing of the left neural foramen. Potential impingement of the right C5 nerve root. C5-6: Disc degeneration and posterior disc bulging disc osteophyte complex. Mild narrowing of spinal canal. Moderate severe narrowing of the left neural foramen. Potential impingement of the left C6 nerve root. No narrowing of the right neural foramen. C6-7: Disc degeneration broad-based disc osteophyte complex. Mild narrowing of spinal canal. Mild narrowing of bilateral foramina. C7-T1: No spinal canal or neural foraminal narrowing. No spinal canal or neural foraminal narrowing in the visualized upper thoracic spine. Procedure Note Jaylen Garcia MD, PhD - 06/13/2024 For Patients: As a result of the Cures Act, medical imagingexams and procedure reports are released immediately into your electronicmedical record. You may view this report before your referring provider.If you have questions, please contact your health care provider. INDICATION: Radiculopathy. Hand numbness. Comparison 08/25/2022. Technique: Sagittal T1, T2, and STIR sequences. Axial T2/gradient sequences. FINDINGS: Stable straightening of the normal cervical lordosis which may besecondary to most spasm or patient positioning. Otherwise, normalvertebral body and facet alignment. No fractures. No vertebral body lossof height. No evidence injury. No suspicious osseous lesions. Normal cordsignal. No intradural mass or lesion. C1-2: No spinal canal narrowing. C2-3: No narrowing of the spinal canal. No neural foraminal narrowing. C3-4: Mild disc degeneration. Posterior disc bulge. No narrowing of spinalcanal. Moderate right and moderate severe left neural foraminal narrowing.Potential impingement of the left C4 nerve root. C4-5: Disc degeneration. No narrowing of the spinal canal. Moderate severenarrowing of the right neural foramen. No narrowing of the left neuralforamen. Potential impingement of the right C5 nerve root. C5-6: Disc degeneration and posterior disc bulging disc osteophytecomplex. Mild narrowing of spinal canal. Moderate severe narrowing of theleft neural foramen. Potential impingement of the left C6 nerve root. Nonarrowing of the right neural foramen. C6-7: Disc degeneration broad-based disc osteophyte complex. Mildnarrowing of spinal canal. Mild narrowing of bilateral foramina. C7-T1: No spinal canal or neural foraminal narrowing. No spinal canal or neural foraminal narrowing in the visualized upperthoracic spine. IMPRESSION: 1. Stable straightening of the normal cervical lordosis. Otherwise normalalignment. No fractures 2. Normal cord signal. 3. At C3-4, moderate right and [id number] left neural foraminalnarrowing. Potential impingement of left C4 nerve root. 4. At C4-5, moderate to severe narrowing of the right neuroforamen.Potential impingement of the right C5 nerve root. 5. At C5-6, moderate to severe narrowing of the left neural foramen.Potential impingement of the left C6 nerve root. Dictated by Jaylen Garcia MD @ 06/13/2024 10:06:27 PM (Electronically Signed) Chris Eason MD MR * (ABNORMAL) CBC WITH AUTO DIFFERENTIAL (06/13/2024 9:39 AM CDT) WHITE BLOOD CELL COUNT 11.6(H) 3.8 - 10.8 Thousand/u L [facility] RED BLOOD CELL COUNT 4.62 3.80 - 5.10 Million/uL [facility] HEMOGLOBIN 13.3 11.7 - 15.5 g/dL [facility] HEMATOCRIT 40.9 35.0 - 45.0 % [facility] MCV 88.5 80.0 - 100.0 fL [facility] MCH 28.8 27.0 - 33.0 pg [facility] MCHC 32.5 32.0 - 36.0 g/dL [facility]) Comment: For adults, a slight decrease in the calculated MCHC value (in the range of 30 to 32 g/dL) is most likely not clinically significant; however, it should be interpreted with caution in correlation with other red cell parameters and the patient's clinical condition. RDW 12.5 11.0 - 15.0 % [facility] PLATELET COUNT 316 140 - 400 Thousand/u L [facility] MPV 9.2 7.5 - 12.5 fL [facility] ABSOLUTE NEUTROPHILS 6,299 1,500 - 7,800 cells/uL [facility] (Urgent Care) ABSOLUTE LYMPHOCYTES 3,805 850 - 3,900 cells/uL [facility]) ABSOLUTE MONOCYTES 1,067(H) 200 - 950 cells/uL [facility]gent [facility]) ABSOLUTE EOSINOPHILS 394 15 - 500 cells/uL [facility]) ABSOLUTE BASOPHILS 35 0 - 200 cells/uL [facility]) NEUTROPHILS 54.3 % [facility] (Urgent [facility]) LYMPHOCYTES 32.8 % [facility] MONOCYTES 9.2 % [facility]) EOSINOPHILS 3.4 % [facility]) BASOPHILS 0.3 % [facility]) 06/13/2024 9:39 AM CDT 06/13/2024 9:40 AM CDT Narrative [facility] - 06/13/2024 9:53 AM CDT SPLIT 06/13/2024 FROM [id number] Carol DIAZ H[facility]OLOG[facility] [address] [place], [place] [address] ([facility]gent [facility]) [address] [place] [address] * CAROTID DUPLEX BILATERAL (06/10/2024 10:37 AM CDT) Anatomical Region Laterality Modality CAROTID, NECK Ultrasound Impressions 06/10/2024 5:02 PM CDT ?? No hemodynamically significant stenosis within the bilateral internal carotid arteries. Normal antegrade flow within the bilateral vertebral arteries. Jaylen Garcia M.D., PhD. [employer]or[email or web address] / Narrative 06/10/2024 5:02 PM CDT Table formatting from the original result was not included. For Patients: As a result of the Cures Act, medical imaging exams and procedure reports are released immediately into your electronic medical record. ??You may view this report before your referring provider. ?? If you have questions, please contact your health care provider. CAROTID DUPLEX ULTRASOUND BILATERAL, 06/10/2024 CLINICAL HISTORY: ??Dizziness. Lightheadedness. TECHNIQUE: ??The carotid circulations and the vertebral arteries in the neck were examined with ruiz-scale ultrasound, color-flow and Doppler spectral analysis. Degrees of stenosis were determined using SRU 2002 Consensus Panel Criteria. COMPARISON: ??12/06/2014. FINDINGS: ??Ruiz-scale ultrasound evaluation demonstrates no significant atheromatous plaque within the bilateral carotid circulations. ??Color Doppler evaluation demonstrates no elevated velocities. ??ICA/CCA ratio is 0.9 on the right and 1.2 on the left. Normal antegrade flow within the bilateral vertebral arteries. ?? Multiphasic waveforms within bilateral subclavian arteries. PSV/EDV RIGHT ?? LEFT ?? DISTAL CCA 75/20 ? 76/25 PROX ICA 69/17 59/20 MID ICA 62/24 64/25 DIST ICA 86/30 59/26 ICA/CCA RATIO ?RIGHT ? LEFT ?0.9 ??1.2 VERTEBRAL ARTERY ?RIGHT ?LEFT Antegrade ? 36/14 ? 47/19 Carol DIAZ * SCAN-MRI INTERPRETATION (06/08/2024 12:00 AM CDT) Anatomical Region Laterality Modality Other Scanner OTHER * MR SPINE LUMBAR WO (05/12/2024 1:21 [...] For Patients: As a result of the Century Cures Act, medical imaging exams and procedure reports are released immediately into your electronic medical record. You may view this report before your referring provider. If you have questions, please contact your health care provider. XR MAMMO BILAT SCREENING [[id number]] CLINICAL HISTORY: ??This is an asymptomatic 63 y.o. patient. INDICATION FOR EXAM: Mammogram Screening. TECHNIQUE: CC & MLO views were obtained. ??This study was evaluated with the assistance of Computer-Aided Detection. COMPARISON FILM: Yes 05/20/21 [employer] 10/04/15 [employer] FINDINGS: ??There are scattered areas of fibroglandular density. There are no dominant masses, suspicious micro calcifications or areas of architectural distortion. Patricia Diaz PA MAMMO * (ABNORMAL) LIPID PANEL W REFLEX MEASURED LDL (03/08/2024 9:40 AM CDT) CHOLESTEROL,TOTAL 231(H) 100 - 199 mg/dL 03/09/2024 5:45 AM CDT [facility] [employer] [facility] Comment: Cholesterol, Total Reference Ranges Desirable <200 mg/dL Borderline 200-239 mg/dL High >=240 mg/dL TRIGLYCERIDES 229(H) <150 mg/dL 03/09/2024 5:45 AM CDT [facility] HDL CHOLESTEROL 50 >40 mg/dL 5:45 AM CDT [facility] NON-HDL CHOLESTEROL 181(H) <145 mg/dl 03/09/2024 5:45 AM CDT [facility] CHOL/HDL RATIO 4.62(H) <4.50 03/09/2024 5:45 AM CDT [facility] LDL CHOLESTEROL 135(H) <=130 mg/dL 03/09/2024 5:45 AM CDT [facility] VLDL CHOLESTEROL 46(H) <=30 mg/dL 03/09/2024 5:45 AM CDT [facility] PROVIDER ORDERED STATUS RANDOM 03/09/2024 5:45 AM CDT [facility] Blood BLOOD SPECIMEN / Unknown Venipuncture / Unknown 03/08/2024 9:40 AM CDT 03/08/2024 3:38 PM CDT Patricia DIAZ CHEMISTRY [facility] [address] [place] [address], from Last 3 Months or Most Recently Relevant to Health Maintenance Advance Directives * Full Code (Latest Code Status on File) Date Activated Date Inactivated Comments 12/08/2023 10:07 AM 12/11/2023 4:23 PM Question Answer Comments Code Status Discussion: Unable to Assess Preferences, Provider to review later Care Teams Whipped Topping Finisher Relationship Specialty Start Date End Date Carol Clements PA [address] [place] [address] PCP - General Physician News Video Editor 05/31/24 [place] [address] [place] [address] Dermatology 06/03/24 Kailyn White [address] [place] [address] Complex Care Management Care Guide 07/04/24
--- OUTSIDE RECORDS SUMMARY | 2024-07-05 12:05 | XMS_ITS | Clinical Summary ---
Author Organization [facility] Address [address] [place] [address]. 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 Gender Identity Not on file Sexual Orientation [...] - 145 mmol/L 04/15/2022 3:05 PM CDT [facility] Potassium 3.3(L) 3.5 - 5.0 mmol/L 04/15/2022 3:05 PM CDT [facility] Chloride 103 98 - 107 mmol/L 04/15/2022 3:05 PM CDT [facility] Carbon Dioxide (CO2) 30 22 - 31 mmol/L 04/15/2022 3:05 PM CDT [facility] Anion Gap 8 5 - 18 mmol/L 04/15/2022 3:05 PM CDT [facility] Urea Nitrogen 22 8 - 22 mg/dL 04/15/2022 3:05 PM [facility] Creatinine 1.02 0.60 - 1.10 mg/dL 04/15/2022 3:05 PM [facility] Calcium 9.6 8.5 - 10.5 mg/dL 04/15/2022 3:05 PM [facility] Glucose 112 70 - 125 mg/dL 04/15/2022 3:05 PM [facility] Alkaline Phosphatase 61 45 - 120 U/L 04/15/2022 3:05 PM [facility] AST 23 0 - 40 U/L 04/15/2022 3:05 PM [facility] ALT 24 0 - 45 U/L 04/15/2022 3:05 PM [facility] Protein Total 7.5 6.0 - 8.0 g/dL 04/15/2022 3:05 PM [facility] Albumin 3.8 3.5 - 5.0 g/dL 04/15/2022 3:05 PM [facility] Bilirubin Total 0.5 0.0 - 1.0 mg/dL 04/15/2022 3:05 PM [facility] GFR Estimate 62 >60 mL/min/1.7 3m2 04/15/2022 3:05 PM [facility] Comment:Effective August 082020 eGFRcr in adults is calculated using the 2020 CKD-EPI creatinine equation which includes age and gender (Bonnie et al., NEJ, DOI: 10.1056/ZRFJch1256311) Blood VENOUS LINE / Unknown Venipuncture / Unknown 04/15/2022 2:26 PM CDT 04/15/2022 2:31 PM CDT us Kain Olsen MD LAB - BLOOD ORDERABLES Final R esult [facility] [address] [place], [place] [address], [facility] [phone] from Last 3 Months or Most Recently Relevant to Health Maintenance Insurance [facility] Care Teams Integrity Consultant Relationship Specialty Start Date End Date Carol Clements [address] [place] [address] PCP - General Physician Screen Making Technician 04/15/22
--- NOTE | 2024-07-05 12:32 | W.ANESCHARGE ---
Anesthesia Charges Start Date/Time Anesthesia Start Date: 07/05/24 Anesthesia Start Time: 12:40 Stop Date/Time Anesthesia Stop Date: 07/05/24 Anesthesia Stop Time: 13:21
--- NOTE | 2024-07-05 13:24 | W.ANESCHARGE ---
Anesthesia Charges Start Date/Time Anesthesia Start Date: 07/05/24 Anesthesia Start Time: 12:40 Stop Date/Time Anesthesia Stop Date: 07/05/24 Anesthesia Stop Time: 13:21
== END 2024-07-05 12:03 | disposition home or self-care (01) ==
LOC: OP CLINIC 12:02
PROVIDERS: PCP Physician Assistant Medical; Visit Provider Surgery
DX: Z12.11 Encounter for screening for malignant neoplasm of colon (principal); D12.2 Benign neoplasm of ascending colon; D12.3 Benign neoplasm of transverse colon; D12.5 Benign neoplasm of sigmoid colon; K64.9 Unspecified hemorrhoids
CPT/HCPCS: 00811; 45385; 88305; J2704

== ENCOUNTER 2024-09-20 08:27 | Outpatient (CLI) | payer BC, SELFPAY | END 2024-09-20 08:28 | disposition home or self-care (01) | LOC: INJ CL 08:28 | PROVIDERS: PCP Physician Assistant Medical; Visit Provider Family Medicine | DX: M54.16 Radiculopathy, lumbar region (principal); M51.369 Other intervertebral disc degeneration, lumbar region without mention of lumbar back pain or lower extremity pain | CPT/HCPCS: 64483; 64484; J1100; Q9966 ==

== ENCOUNTER 2025-01-10 06:52 | Outpatient (CLI) | payer BC, SELFPAY | END 2025-01-10 06:53 | disposition home or self-care (01) | PROVIDERS: PCP Physician Assistant Medical; Visit Provider Family Medicine | DX: M54.16 Radiculopathy, lumbar region (principal); M51.26 Other intervertebral disc displacement, lumbar region; M51.369 Other intervertebral disc degeneration, lumbar region without mention of lumbar back pain or lower extremity pain | CPT/HCPCS: 64483; 64484; J1100; Q9966 ==